=== PATIENT | female | born 1950 | race American Indian/Alaskan Native ===

== ENCOUNTER 2018-07-27 13:23 | Inpatient (IN) | payer MEDICARE, OTHER ==
--- NOTE | 2018-07-27 14:16 | ED PDOC ---
Arrival/HPI - General Chief Complaint: Shortness Of Breath Time Seen by Provider: 07/27/18 13:45 Historian: Patient - History of Present Illness Narrative History of Present Illness (Text): 07/27/18 14:15 67 year old female, with past medical history of hypertension and hypothyroidism, presents to the ED complaining of generalized weakness and chills since past week. Patient reports recent completion of Iron pills prescribed by her PMD secondary to abnormal blood results. Patient reports past history of blood transfusion and states receiving 1 unit of blood recently. Patient denies any other associated somatic complaints. Patient denies any fevers, headache, dizziness, chest pain, shortness of breath, dyspnea on exertion, cough, abdominal pain, nausea, vomiting, diarrhea, back pain, neck pain, or any other complaints. PMD: Dr. Justin Time/Duration: 1 week Symptom Onset: Gradual Symptom Course: Unchanged Activities at Onset: Light Context: Home Past Medical History - Provider Review Nursing Documentation Reviewed: Yes - Cardiac Hx Hypertension: Yes - Endocrine/Metabolic Hx Hypothyroidism: Yes - Psychiatric Hx Substance Use: No - Surgical History Other/Comment: hernia repair - Anesthesia Hx Anesthesia: Yes Hx Anesthesia Reactions: No Hx Malignant Hyperthermia: No Family/Social History - Physician Review Nursing Documentation Reviewed: Yes Family/Social History: Unknown Family HX Smoking Status: Never Smoked Hx Alcohol Use: No Hx Substance Use: No Allergies/Home Meds Allergies/Adverse Reactions: Allergies No Known Allergies Allergy (Verified 07/20/18 10:28) Review of Systems - Physician Review All systems were reviewed & negative as marked: Yes - Review of Systems Constitutional: Other (Generalized weakness). absent: Fevers Respiratory: absent: SOB, Cough Cardiovascular: absent: Chest Pain, WEBB Gastrointestinal: absent: Abdominal Pain, Diarrhea, Nausea, Vomiting Genitourinary Female: absent: Dysuria, Urine Output Changes Musculoskeletal: absent: Back Pain, Neck Pain Skin: absent: Rash Neurological: absent: Headache, Dizziness Physical Exam - Physical Exam Narrative Physical Exam (Text): 07/27/18 14:21 Gen: VS reviewed, alert, well developed, well nourished, nontoxic, mild distress, pale appearing. ENT: normal pharynx. Eye: EOMI, PERRL. Neck: no JVD, supple, no adenopathy. CV: regular rate, regular rhythm, no rubs, no murmur, no gallops, S1, S2, pulses equal and strong. Pulm: no distress, clear to auscultation, no wheeze, no rhonchi, breath sounds equal, no rales. Abd: soft, nontender, no guarding, no rebound, no rigidity, normal bowel sounds. Ext: no edema. Skin: Pale appearing, no rash, no cyanosis. Psych: responds appropriately to questions, normal affect. Neuro: oriented x 3, CN2-12 intact grossly, motor intact, sensation intact. Appearance: Positive for: Well-Appearing, Non-Toxic, Comfortable, Other (Pale appearing) Pain Distress: Mild Mental Status: Positive for: Alert and Oriented X 3 Medical Decision Making ED Course and Treatment: 07/27/18 14:22 Impression: 67 year old female presents to the Emergency department complaining of generalized weakness and chills. Plan: -- Labs -- EKG -- Urinalysis -- Reassess and disposition Prior Visits: Notes and results from previous visits were reviewed. Progress Notes: 07/27/18 16:[address] junior, patient to be admitted for symptomatic anemia. in light of the patient's borderline Hb, patient feels very run down and lethargic. Patient does not exhibit overt active blood loss. Patient will require at least one unit prbc. - EKG Interpretation EKG Interpretation (Text): 07/27/18 15:10 1334: nsr at 100 bpm, nml qrs, nml axis, nonspecific t wave abn, artifact Interpreted by ED Physician: Yes - Scribe Statement The provider has reviewed the documentation as recorded by the Daleibngoc Urrutia. All medical record entries made by the Scribe were at my direction and personally dictated by me. I have reviewed the chart and agree that the record accurately reflects my personal performance of the history, physical exam, medical decision making, and the department course for this patient. I have also personally directed, reviewed, and agree with the discharge instructions and disposition. Disposition/Present on Arrival - Present on Arrival Any Indicators Present on Arrival: No History of DVT/PE: No History of Uncontrolled Diabetes: No Urinary Catheter: No History of Decub. Ulcer: No History Surgical Site Infection Following: None - Disposition Have Diagnosis and Disposition been Completed?: Yes Diagnosis: Symptomatic anemia Disposition: HOSPITALIZED Disposition Time: 16:42 Condition: STABLE Forms: [facility] (Greek)
[2018-07-27 15:54] LABS: BASO # 0.02 K/mm3 (0.0-2.0); BASO % 0.4 % (0.0-3.0); EOS % 0.2 % (1.5-5.0); GRAN # 2.96 (1.4-6.5); GRAN % 66.4 % (50.0-68.0); HEMOGLOBIN 8.4 g/dL (12.0-16.0); LYMPH # 1.1 (1.2-3.4); LYMPH % 24.7 % (22.0-35.0); MEAN CELL VOLUME 79.7 fl (80.0-105.0); MEAN CORPUSCULAR HEMOGLOBIN 24.1 pg (25.0-35.0); MEAN CORPUSCULAR HGB CONC 30.2 g/dl (31.0-37.0); MEAN PLATELET VOLUME 10.2 fl (7.0-11.0); MONO # 0.4 (0.1-0.6); MONO % 8.3 % (1.0-6.0); RBC 3.49 10^6/uL (3.5-6.1); RED CELL DISTRIBUTION WIDTH 17.2 % (11.5-14.5); WHITE BLOOD COUNT 4.5 10^3/uL (4.5-11.0)
[2018-07-27 16:00] LABS: ALB/GLOB RATIO 0.8 (1.1-1.8); ALBUMIN 3.9 g/dL (3.0-4.8); ALT/SGPT 20 U/L (7-56); AST/SGOT 29 U/L (14-36); BLOOD UREA NITROGEN 10 mg/dL (7-21); CALCIUM 7.6 mg/dL (8.4-10.5); GFR NON-AFRICAN AMERICAN > 60
[2018-07-27] MEDS ORDERED: Lactated Ringer's 1,000 ML IV SCH (17:45)
[2018-07-27 18:32] LABS: TOTAL IRON BINDING CAPACITY 290 ug/dL (265-497)
[2018-07-27 18:42] LABS: FREE T4 1.66 ng/dL (0.78-2.19); T4 10.8 ug/dL (5.5-11.0)
[2018-07-27 18:49] LABS: % IRON SATURATION 11 % (20-55); IRON 32 ug/dL (45-180)
--- NOTE | 2018-07-27 18:52 | CARD ---
APPROVED REPORT Date of service: 07/27/2018 EKG Measurement Heart [id number] <Conclusion> Normal sinus rhythm Nonspecific T wave abnormality Abnormal ECG
[2018-07-27] MEDS: Lactated Ringer's 1,000 ML IV SCH (20:13)
--- NOTE | 2018-07-27 20:14 | CP.PCM.CON ---
History of Present Illness - History of Present Illness History of Present Illness: 67 year old female with a history of HTN and iron deficiency anemia, admitted with fatigue and weakness, with anemia. The patient was seen by me 2 weeks ago for anemia evaluation. Her work up was consistent with iron deficiency anemia with a hgb of 6.5. She was sent to the outpatient infusion area at [place] for 2U PRBC transfusion. She received 1 unit and on the 2nd day, prior to transfusion, was noted to have a fever of 102F. She was referred back to her PMD to be evaluated for fever. She notes to being prescribed antibiotics and flu medication but continued to feel weak and came to the ER. In the ER she was found to have a hgb 8.3. She notes to continued fatigue and weakness. She denies abnormal bleeding and bruising. Of note, she did have a colonoscopy about 2-3 years ago which she reports only showed polyps. Past medical history: HTN, iron deficiency anemia Past surgical history: Hernia repair, thyroid surgery ?goiter Family history: Denies hematologic and oncologic problems Social history: Denies tobacco, alcohol, and illicit drug use Allergies: NKA Review of systems: All remaining review of systems including HEENT, cardiovascular, respiratory, gastrointestinal, genitourinary, musculoskeletal, dermatologic, neurologic, and psychiatric are negative unless mentioned in the HPI. Past Patient History - Past Social History Smoking Status: Never Smoked - CARDIAC Hx Hypertension: Yes - ENDOCRINE/METABOLIC Hx Hypothyroidism: Yes - PSYCHIATRIC Hx Substance Use: No - SURGICAL HISTORY Other/Comment: hernia repair - ANESTHESIA Hx Anesthesia: Yes Hx Anesthesia Reactions: No Hx Malignant Hyperthermia: No Meds Allergies/Adverse Reactions: Allergies Allergy/AdvReac Type Severity Reaction Status Date / Time No Known Allergies Allergy Verified 07/27/18 18:59 - Medications Medications: Current Medications Acetaminophen (Tylenol 325mg Tab) 650 mg PO Q6 PRN PRN Reason: TEMP>=99.5F Acetaminophen (Tylenol 650 Mg Supp) 650 mg RC Q6H PRN PRN Reason: TEMP>=99.5F Docusate Sodium (Colace) 100 mg PO TID WANDER Iron Sucrose 200 mg/ Sodium (Chloride) 110 mls @ 110 mls/hr IVPB DAILY WANDER Stop: 07/31/18 10:59 Lactated Ringer's (Lactated Ringer's) 1,000 mls @ 60 mls/hr IV .[id number] [facility] Last Admin: 07/27/18 20:13 Dose: 60 mls/hr Metoprolol Tartrate (Lopressor) 25 mg PO Q12H [facility] Last Admin: 07/27/18 20:13 Dose: 25 mg Ondansetron HCl (Zofran Inj) 4 mg IVP Q4H PRN PRN Reason: Nausea/Vomiting Pantoprazole Sodium (Protonix Ec Tab) 40 mg PO 0600 [facility] Polyethylene Glycol (Miralax) 17 gm PO BID [facility] Physical Exam - Head Exam Head Exam: ATRAUMATIC - Eye Exam Eye Exam: Normal appearance - ENT Exam ENT Exam: Mucous Membranes Dry - Respiratory Exam Respiratory Exam: NORMAL BREATHING PATTERN - Cardiovascular Exam Cardiovascular Exam: +S1, +S2 - GI/Abdominal Exam GI & Abdominal Exam: Normal Bowel Sounds - Neurological Exam Neurological exam: Oriented x3 - Psychiatric Exam Psychiatric exam: Normal Affect, Normal Mood - Skin Skin Exam: Warm Results - Vital Signs Recent Vital Signs: Last Vital Signs Temp 98.5 F 07/27/18 16:58 Pulse 103 H 07/27/18 20:13 Resp 19 07/27/18 16:58 BP 161/72 H 07/27/18 20:13 Pulse Ox 95 07/27/18 16:58 - Labs Result Diagrams: 07/28/18 07:40 07/28/18 07:40 Labs: Laboratory Results - last 24 hr 07/27/18 07/27/18 07/27/18 15:00 15:00 15:00 WBC RBC Hgb Hct MCV MCH MCHC RDW Plt Count MPV Gran % Lymph % (Auto) Stearns % (Auto) Eos % (Auto) Baso % (Auto) Gran # Lymph # (Auto) Stearns # (Auto) Eos # (Auto) Baso # (Auto) Retic Count 1.09 Sodium Potassium Chloride Carbon Dioxide Anion Gap BUN Creatinine Est GFR ( Amer) Est GFR (Non-Af Amer) Random Glucose Calcium Magnesium Iron 32 L TIBC 290 % Saturation 11 L Total Bilirubin AST ALT Alkaline Phosphatase Troponin I Total Protein Albumin Globulin Albumin/Globulin Ratio Free T4 1.66 Thyroxine (T4) 10.8 TSH 3rd Generation Blood Type Antibody Screen Crossmatch BBK History Checked 07/27/18 07/27/18 07/27/18 15:37 15:37 15:37 WBC 4.5 RBC 3.49 L Hgb 8.4 L Hct 27.8 L MCV 79.7 L MCH 24.1 L MCHC 30.2 L RDW 17.2 H Plt Count 381 MPV 10.2 Gran % 66.4 Lymph % (Auto) 24.7 Stearns % (Auto) 8.3 H Eos % (Auto) 0.2 L Baso % (Auto) 0.4 Gran # 2.96 Lymph # (Auto) 1.1 L Stearns # (Auto) 0.4 Eos # (Auto) 0.0 Baso # (Auto) 0.02 Retic Count Sodium 138 Potassium 4.3 Chloride 100 Carbon Dioxide 28 Anion Gap 15 BUN 10 Creatinine 0.8 Est GFR ( Amer) > 60 Est GFR (Non-Af Amer) > 60 Random Glucose 110 Calcium 7.6 L Magnesium 2.2 Iron TIBC % Saturation Total Bilirubin 0.5 AST 29 ALT 20 Alkaline Phosphatase 77 Troponin I Total Protein 8.5 H Albumin 3.9 Globulin 4.6 Albumin/Globulin Ratio 0.8 L Free T4 Thyroxine (T4) TSH 3rd Generation 1.75 Blood Type Antibody Screen Crossmatch BBK History Checked 07/27/18 07/27/18 16:26 16:36 WBC RBC Hgb Hct MCV MCH MCHC RDW Plt Count MPV Gran % Lymph % (Auto) Stearns % (Auto) Eos % (Auto) Baso % (Auto) Gran # Lymph # (Auto) Stearns # (Auto) Eos # (Auto) Baso # (Auto) Retic Count Sodium Potassium Chloride Carbon Dioxide Anion Gap BUN Creatinine Est GFR ( Amer) Est GFR (Non-Af Amer) Random Glucose Calcium Magnesium Iron TIBC % Saturation Total Bilirubin AST ALT Alkaline Phosphatase Troponin I < 0.01 Total Protein Albumin Globulin Albumin/Globulin Ratio Free T4 Thyroxine (T4) TSH 3rd Generation Blood Type B POSITIVE Antibody Screen Negative Crossmatch See Detail BBK History Checked Patient has bt Assessment & Plan (1) Anemia Assessment and Plan: hypoproliferative erythroid response from iron deficiency normal ferritin likely due to recent transfusion; was low in the office agree with IV iron GI work up Status: Acute (2) Leukopenia Assessment and Plan: no neutropenia likely benign Thank you for this interesting consult. Status: Acute
[2018-07-27 21:43] LABS: INR 1.27; PARTIAL THROMBOPLASTIN TIME 27.7 Seconds (25.1-36.5); PROTHROMBIN TIME 14.6 SECONDS (9.4-12.5)
--- NOTE | 2018-07-27 21:59 | HP ---
DATE OF EXAM: 07/27/2018 HISTORY OF PRESENT ILLNESS: The patient is a 67-year-old female presented with complaints to the [facility] Emergency Room as a walk-in complaining of shortness of breath, fatigue, weakness since last week or so. The patient received transfusion in the [place] emergency room on 07/21/2018 was supposed to get a second unit of PRBC, but was unable to get it for high fever and the patient was treated with antibiotic as per the patient by the PMD. The patient came back today with increasing fatigue, weakness, tiredness and shortness of breath and dyspnea on exertion. CODE STATUS: Full code. LIVING WILL/ADVANCE DIRECTIVE: None. ALLERGIES: NONE. Height is 5 feet 6 inches. BMI is 37. MEDICATIONS: Home medications are not listed in the computer, but according to the patient, the patient is taking nifedipine 90 mg and Lasix 20 mg. The patient is also taking Equetro 300 mg daily. The patient was taking nifedipine 90 mg daily, Lasix 20 mg daily, pantoprazole 40 mg daily. PAST MEDICAL AND SURGICAL HISTORY: The patient's past medical history is significant for hypertension, history of questionable hyperlipidemia, history of hypothyroidism, history of thyroidectomy, history of ventral hernia surgery, history of anemia, history of transfusion requiring anemia, history of endoscopy, colonoscopy 2 years ago at [facility] reported negative by the patient. 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 The patient's past medical history is also significant for hypertension, hypothyroidism, history of ventral herniorrhaphy, history of thyroidectomy, history of transfusion requiring anemia. FAMILY HISTORY: Not available. OCCUPATIONAL HISTORY: Not employed, not working. SOCIAL HISTORY: The patient denies alcohol. Denies drugs. Denies substance abuse. Denies smoking. Denies communicable transmissible disease. MENSTRUAL HISTORY: Postmenopausal. The patient denies any bleeding history. REVIEW OF SYSTEMS: A 14-system review was done, pertinent positive is positive for generalized weakness, fatigue, tiredness and dyspnea on exertion. PHYSICAL EXAMINATION: GENERAL: The patient was seen and examined in room #13. The patient is seen lying in the stretcher in stretcher #13. The patient is comfortable. VITAL SIGNS: T-max 98.6 to 98.5, heart rate 90, 98, 103, blood pressure is 144/83, 154/79, respiration 18, O2 sat 95% to 100%. HEENT: Head examination is normocephalic, atraumatic. HEENT examination shows pale conjunctivae. Anicteric sclerae. No oropharyngeal lesion. NECK: No neck rigidity. Positive surgical scar noted of the neck. CHEST: Kyphosis. CARDIOVASCULAR: S1, S2, regular rhythm. Questionable soft systolic murmur in the left sternal border, right second intercostal space, left second intercostal space. LUNGS: Shows no audible crackles, rales or wheezing. ABDOMEN: Soft. Positive bowel sound . GENITALIA: Female. RECTAL EXAMINATION: Deferred. EXTREMITIES: Shows no pitting edema. No calf tenderness. No Homans' sign. NEUROLOGIC: The patient is alert, awake, oriented x3. He is able to move upper and lower extremity without assistance. Gait examination is not tested. VASCULAR: Palpable pulses. Plantars are downward. DTRs at 2+. No neuro deficit noted. MUSCULOSKELETAL: Examination shows a body mass index of 36. DIAGNOSTICS: WBC 4.5, hemoglobin and hematocrit 8.4 and 27.8, platelets 381. Retic count 1.09. Sodium 138, potassium 4.3, chloride 100, CO2 of 28, anion gap 15, BUN 10, creatinine 0.8. GFR is greater than 60. Glucose 110, calcium 7.6, magnesium 2.2, iron 32, iron saturation 11. LFTs are normal. Troponin is negative. TSH 1.75, T4 10.8. Blood type B positive. EKG done in the emergency room shows sinus rhythm, baseline artifact.. The patient's CT of the chest, abdomen, and pelvis are pending. The patient was seen in the emergency room by the ER physician. The patient was ordered transfusion of 1 unit of PRBC and the patient was advised to be admitted. IMPRESSION: 1. Severe symptomatic anemia with symptoms of dyspnea on exertion, weakness and fatigue with decreasing hemoglobin and hematocrit. 2. Possible refractory anemia. 3. Tachycardia. 4. History of hypertension. 5. Normocytic anemia. 6. Possible iron-deficiency anemia. 7. History of thyroidectomy. 8. History of right parotid, possibly pleomorphic adenoma and right parotid mass. 9. History of thyroid goiter, status post thyroidectomy. 10. History of small vessel ischemic disease of the brain. 11. Right carotid gland cystic mass. 12. Obesity with elevated body mass index of 37. 13. History of hypertension. 14. History of questionable trigeminal neuralgia. PLAN: At this time, the patient has been evaluated in the emergency room and has been advised to be admitted. The patient has been ordered iron studies. Repeat CMP, LFT, magnesium, phosphorus, erythropoietin, hemoglobin electrophoresis, sickle cell, soluble transferrin receptor antibody, PT/PTT, repeat CBC , GI, Hematology/Oncology consultation ordered. The patient has been typed and crossmatch. The patient is started on Colace 100 mg three times a day, Venofer 200 mg IV daily, Ringer's lactate at 60 mL an hour, Lopressor 25 mg every 12, MiraLax 17 g twice a day, Protonix 40 mg daily, Tylenol p.r.n., Zofran 4 IV every [address] of the chest, abdomen, and pelvis has been ordered for evaluation of symptomatic anemia and sent for spirometry, oxygen 2 liters continuous. FELIX stockings for DVT prophylaxis. Head of the bed at 30 degrees, consistent carbohydrate diet ordered. Blood transfusion has been ordered 2 units , stool occult blood ordered. According to the patient, the patient had an endoscopy and colonoscopy done 2 years ago at [facility], which she reports that being negative. Results are unavailable. At present, the patient is awaiting for a bed in the emergency room. The patient's further management will be dependent upon the patient's clinical condition, hemodynamic status and as per the patient response to therapeutic intervention, as per the patient's diagnostic test results and as per recommendation by all the physician involved in the care of the patient. The patient has been explained about all the details and all the diagnostic details and need for hospitalization, need for further diagnostic therapeutic intervention, need for evaluation by other acquisition consultant was explained to the patient at length and all questions concerned answered. Dictated and electronically signed, not read. Alexander Moreland MD
[2018-07-27 22:36] LABS: FOLATE > 20.0 ng/mL
[2018-07-28] MEDS: Pantoprazole 40 mg EC Tab PO SCH (05:25)
[2018-07-28 08:02] LABS: BASO # 0.01 K/mm3 (0.0-2.0); BASO % 0.3 % (0.0-3.0); EOS % 0.6 % (1.5-5.0); GRAN # 2.23 (1.4-6.5); GRAN % 63.7 % (50.0-68.0); HEMOGLOBIN 8.3 g/dL (12.0-16.0); LYMPH # 0.9 (1.2-3.4); LYMPH % 25.4 % (22.0-35.0); MEAN CELL VOLUME 79.6 fl (80.0-105.0); MEAN CORPUSCULAR HEMOGLOBIN 24.2 pg (25.0-35.0); MEAN CORPUSCULAR HGB CONC 30.4 g/dl (31.0-37.0); MEAN PLATELET VOLUME 10.3 fl (7.0-11.0); MONO # 0.4 (0.1-0.6); RBC 3.43 10^6/uL (3.5-6.1); RED CELL DISTRIBUTION WIDTH 16.7 % (11.5-14.5); WHITE BLOOD COUNT 3.5 10^3/uL (4.5-11.0)
[2018-07-28 08:30] LABS: ALB/GLOB RATIO 0.8 (1.1-1.8); ALBUMIN 3.4 g/dL (3.0-4.8); ALT/SGPT 25 U/L (7-56); AST/SGOT 33 U/L (14-36); BILIRUBIN,DIRECT 0.3 mg/dL (0.0-0.4); BLOOD UREA NITROGEN 9 mg/dL (7-21); GFR NON-AFRICAN AMERICAN > 60
--- NOTE | 2018-07-28 09:11 | CT ---
Date of service: 07/27/2018 PROCEDURE: CT Chest, Abdomen and Pelvis without intravenous contrast HISTORY: SYMPTOMATIC ANEMIA COMPARISON: None available. TECHNIQUE: Radiation dose: Total exam DLP = 1510.15 mGy-cm. This CT exam was performed using one or more of the following dose reduction techniques: Automated exposure control, adjustment of the mA and/or kV according to patient size, and/or use of iterative reconstruction technique. FINDINGS: CT CHEST WITHOUT CONTRAST: LUNGS: Clear. No nodule, mass or consolidation. MEDIASTINUM: Cardiomegaly with large pericardial effusion. Large hiatal hernia. LYMPH NODES: Unremarkable. PLEURA: Unremarkable. No pneumothorax. No pleural fluid. BONES: Unremarkable. OTHER FINDINGS: None. CT ABDOMEN AND PELVIS: LIVER: Unremarkable. No gross lesion or ductal dilatation. GALLBLADDER AND BILE DUCTS: Unremarkable. PANCREAS: Unremarkable. No gross lesion or ductal dilatation. SPLEEN: Unremarkable. ADRENALS: Unremarkable. No mass. KIDNEYS AND URETERS: Unremarkable. No hydronephrosis. No solid mass. VASCULATURE: No aortic atherosclerotic calcification or mural plaque present. Unremarkable. No aortic aneurysm. BOWEL: Unremarkable. No obstruction. No gross mural thickening. APPENDIX: Normal appendix. PERITONEUM: Unremarkable. No free fluid. No free air. LYMPH NODES: Unremarkable. No enlarged lymph nodes. BLADDER: Unremarkable. REPRODUCTIVE: Unremarkable. BONES: No acute fracture. OTHER FINDINGS: None. IMPRESSION: Cardiomegaly with large pericardial effusion. Large hiatal hernia.
[2018-07-28] MEDS: POLYETHYLENE GLYCOL 3350 17 GM/Dose PACKET PO SCH ×3 (10:15→17:16)
[2018-07-28 10:53] LABS: URINE APPEARANCE CLEAR (CLEAR); URINE BILIRUBIN NEGATIVE (NEGATIVE); URINE BLOOD NEGATIVE (NEGATIVE); URINE COLOR YELLOW (YELLOW); URINE GLUCOSE (UA) NEGATIVE (NEGATIVE); URINE LEUKOCYTE ESTERASE NEGATIVE Leu/uL (NEGATIVE); URINE PROTEIN TRACE mg/dL (<30 mg/dL); URINE UROBILINOGEN 0.2 E.U./dL (<1 E.U./dL)
[2018-07-28 10:58] LABS: URINE BACTERIA SMALL (NEG); URINE RBC NEGATIVE /hpf (0-2)
--- NOTE | 2018-07-28 13:14 | CARD ---
APPROVED REPORT Date of service: 07/28/2018 EXAM: Two-dimensional and M-mode echocardiogram with Doppler and color Doppler. INDICATION Pericardial Effusion 2D DIMENSIONS Left Atrium (2D)5.2 (1.6-4.0cm)IVSd1.0 (0.7-1.1cm) LVDd4.5 (3.9-5.9cm)PWd1.1 (0.7-1.1cm) LVDs3.0 (2.5-4.0cm)FS (%) 33.9 % LVEF (%)62.9 (>50%) M-Mode DIMENSIONS Aortic Root3.00 (2.2-3.7cm)Aortic Cusp Exc.1.90 (1.5-2.0cm) Aortic Valve AoV Peak Yjxtpnsw420.0cm/Eda Peak GR.9mmHg Mitral Valve MV E Moltordv97.5cm/sMV A Cqaauxst48.5cm/sE/A ratio0.7 TDI Lateral E' Peak V8.09cm/sMedial E' Peak V7.51cm/sE/Lateral E'6.9 E/Medial E'7.4 Pulmonary Valve PV Peak Nrnfzdqs36.7cm/sPV Peak Grad.4mmHg Tricuspid Valve TR Peak Nzodskoe410it/sRAP [id number] Peak Gr.36mmHg [id number] LEFT VENTRICLE The left ventricle is normal size. There is borderline to mild concentric left ventricular hypertrophy. The left ventricular function is normal. The left ventricular ejection fraction is within the normal range. There is normal LV segmental wall motion. Transmitral Doppler flow pattern is Grade I-abnormal relaxation pattern. No left ventricle thrombus noted on this study. RIGHT VENTRICLE The right ventricle is normal size. There is normal right ventricular wall thickness. The right ventricular systolic function is normal. ATRIA The left atrium is moderately dilated. The right atrium is mildly dilated. AORTIC VALVE The aortic valve is normal in structure. No aortic regurgitation is present. There is no aortic valvular stenosis. MITRAL VALVE The mitral valve is normal in structure. Mitral regurgitation is mild. There is no mitral valve stenosis. TRICUSPID VALVE There is mild tricuspid regurgitation. There is mild to moderate pulmonary hypertension. PULMONIC VALVE There is trace pulmonic valvular regurgitation. GREAT VESSELS The aortic root is normal in size. PERICARDIAL EFFUSION There is a small-moderate circumferential pericardial effusion. There is an evidence of diastolic compression of the right atrium pericardial effusion. <Conclusion> There is borderline to mild concentric left ventricular hypertrophy. The left ventricular function is normal. The left ventricular ejection fraction is within the normal range. There is normal LV segmental wall motion. Transmitral Doppler flow pattern is Grade I-abnormal relaxation pattern. Mitral regurgitation is mild. There is mild tricuspid regurgitation. There is mild to moderate pulmonary hypertension. There is a small-moderate circumferential pericardial effusion. There is an evidence of diastolic compression of the right atrium pericardial effusion.
--- NOTE | 2018-07-28 16:04 | PN ---
DATE: 07/28/2018 SUBJECTIVE: The patient is seen in room 574, bed 2. The patient is sitting up in the bed, alert, awake, responsive in the process of beginning to eat her breakfast.. The patient is comfortable. Sitting up in the bed. The patient's shortness of breath has decreased. The patient states that her shortness of breath is less than the last few days. The patient received 1 unit of packed red blood cells. PHYSICAL EXAMINATION: VITAL SIGNS: T-max is 100.2, 102.1 down to 100 degrees. Heart rate 85-87, blood pressure is 159/89, 160/90, 144/77, respiration 18-20, O2 sat 100%. Head: Examination normocephalic, atraumatic. HEENT: Shows pale conjunctivae. Anicteric sclerae. No oropharyngeal lesion. Dry oral mucosa. No neck rigidity. CHEST: Examination kyphosis. LUNGS: Examination shows no audible crackle, rales or wheezing. CARDIOVASCULAR: Shows S1, S2, regular rhythm. ABDOMEN: Soft. Positive bowel sounds. Protuberant, obese abdomen. GENITALIA: Female. RECTAL: Examination is deferred. EXTREMITIES: Shows no pitting edema, no calf tenderness, no Dai's signs. NEUROLOGIC: The patient is alert, awake, oriented x3. Cranial nerves II-XII intact. Gait examination is not tested. MUSCULOSKELETAL: Examination shows a body mass index of 36.5. PSYCHIATRIC: Examination is negative. VASCULAR: Palpable pulses. DIAGNOSTICS: 07/28/2018, WBC 3.5, hemoglobin/hematocrit 8.3/27.3, platelet 329. PT/PTT 14.6/27.7. Sodium 134, potassium 3.8, chloride 101, CO2 26, anion gap 10, BUN 9, creatinine 0.7, GFR greater than 60, glucose 110, calcium 7, phosphorus 4.9, magnesium 2. Troponin is negative. LFTs are normal. Vitamin B12 479, folate greater than 20. TSH is 1.75. T4 is 10.8. The patient received 1 unit of PRBC. Blood type B positive. is now available, which shows cardiomegaly with large pericardial effusion, large hiatal hernia. IMPRESSION: 1. Severe symptomatic anemia with symptoms of shortness of breath, weakness and fatigue. 2. High-grade fever of 102.1. 3. Tachycardia. 4. Hypertension. 5. Severe symptomatic anemia. 6. Leukopenia, anemia. 7. Mild hypocalcemia. 8. Iron deficiency. 9. Possible iron-deficiency anemia with decreased iron, decreased saturation. 10. Hyperphosphatemia. 11. Status post 1 unit of PRBC transfusion. 12. Cardiomegaly with large pericardial effusion. 13. Large hiatal hernia. 14. Nonspecific ST changes on the EKG. 15. History of hypertension. 16. History of right parotid tumor, history of thyroidectomy, history of ventral hernia surgery. PLAN: Plan at this time, the patient has been ordered repeat serial labs. The patient has been ordered repeat CBC. The patient has been ordered blood cultures, urine cultures STAT. The patient has been ordered Cardiology consultation, GI consultation, Infectious Disease consultation Rapid flu, rapid strep has been ordered. Current medications, Colace 100 mg three times a day, Venofer 200 mg IV daily, Ringer's lactate 60 mL an hour, Lopressor 25 mg every 12 hours, MiraLax 17 g twice a day, Protonix 40 mg daily. The patient is empirically started on Tamiflu 75 mg twice a day. The patient stated that the patient was taking this last week. Was given to the patient by the patient's PMD, Tylenol p.r.n. for fever, Zofran 4 IV every four hours, incentive spirometry oxygen 2 liters, echo with Doppler has been ordered for evaluation of pericardial effusion. SCDs, FELIX stockings, head of the bed at 30 degrees. Has been ordered blood transfusion for the second unit has been ordered, stool occult blood pending. We are still awaiting Gastroenterology, Hematology and Cardiology evaluation and recommendation.. The patient has been updated about her condition, diagnosis, treatment plan, management plan at length and all questions concerned answered to her satisfaction. Dictated and electronically signed, not read. Alexander Moreland MD
--- NOTE | 2018-07-28 16:21 | CP.PCM.CON ---
History of Present Illness - History of Present Illness History of Present Illness: MICU CONSULT NOTE HPI Patient is 67yo female with PMhx HTN and iron defeciency anemia, admitted to floor with fatigue and weakness, s/p receiving prBC transfusion. Patient had ECHO done which showed moderate pericardial effusion, with possible early tamponade physiology. Pt is afebrile, BP stable, comfortable in NAD on room air, doing well, no major complaints. No other constitutional symptoms. Past medical history: HTN, iron deficiency anemia Past surgical history: Hernia repair, thyroid surgery ?goiter Family history: Denies hematologic and oncologic problems Social history: Denies tobacco, alcohol, and illicit drug use Allergies: NKA Review of Systems - Review of Systems Review of Systems: as per HPI Past Patient History - Past Social History Smoking Status: Never Smoked - CARDIAC Hx Cardiac Disorders: Yes Hx Hypertension: Yes - PULMONARY Hx Respiratory Disorders: No Hx Asthma: No Hx Bronchitis: No Hx Chronic Obstructive Pulmonary Disease (COPD): No Hx Emphysema: No Hx Pneumonia: No Hx Respiratory Aspiration: No Hx Respiratory Tract Infection: No Hx Sleep Apnea: No Hx Tuberculosis: No - NEUROLOGICAL Hx Neurological Disorder: No Hx Alzheimer's Disease: No HX Cerebrovascular Accident: No Hx Dementia: No Hx Dizziness: No Hx Meningitis: No Hx Migraine: No Hx Parkinson's Disease: No Hx Seizures: No Hx Transient Ischemic Attacks (TIA): No - HEENT Hx HEENT Problems: No Hx Blind: No Hx Cataracts: No Hx Deafness: No Hx Difficulty Chewing: No Hx Epistaxis: No Hx Glaucoma: No Hx Macular Degeneration: No - RENAL Hx Chronic Kidney Disease: No Hx Dialysis: No Hx Kidney Stones: No Hx Neurogenic Bladder: No Hx Pyelonephritis: No Hx Renal (Kidney) Cancer: No Hx Renal Failure: No - ENDOCRINE/METABOLIC Hx Hypothyroidism: Yes - HEMATOLOGICAL/ONCOLOGICAL Hx Blood Disorders: No Hx AIDS: No Hx Anemia: Yes Hx Cancer: No Hx Chemotherapy: No Hx Cirrhosis: No Hx Hemophilia: No Hx Hepatitis A: No Hx Hepatitis B: No Hx Hepatitis C: No Hx Human Immunodeficiency Virus (HIV): No Hx Metastesis: No Hx Shingles: No Hx Sickle Cell Disease: No Hx Unexplained Bleeding: No - INTEGUMENTARY Hx Dermatological Problems: No Hx Basil Cell: No Hx Eczema: No Hx Melanoma: No Hx Psoriasis: No Hx Squamous Cell: No - MUSCULOSKELETAL/RHEUMATOLOGICAL Hx Musculoskeletal Disorders: No Hx Arthritis: No Hx Back Pain: No Hx Degenerative Joint Disease: No Hx Falls: No Hx Fractures: No Hx Gout: No Hx Herniated Disk: No Hx Myasthenia Gravis: No Hx Osteoarthritis: No Hx Osteomyelitis: No Hx Osteoporosis: No Hx Rhabdomyolysis: No Hx Spinal Stenosis: No Hx Unsteady Gait: No - GASTROINTESTINAL Hx Crohn's Disease: No Hx Diverticulitis: No Hx Gall Bladder Disease: No Hx Gastroesophageal Reflux: No Hx Ileostomy: No Hx Liver Failure: No Hx Pancreatitis: No HX Swallowing Problems: No Hx Ulcer: No - GENITOURINARY/GYNECOLOGICAL Hx Genitourinary Disorders: No Hx Hematuria: No Hx Incontinence: No Hx Sexually Transmitted Disorders: No Hx Urinary Tract Infection: No - PSYCHIATRIC Hx Substance Use: No - SURGICAL HISTORY Other/Comment: hernia repair - ANESTHESIA Hx Anesthesia: Yes Hx Anesthesia Reactions: No Hx Malignant Hyperthermia: No Meds Allergies/Adverse Reactions: Allergies Allergy/AdvReac Type Severity Reaction Status Date / Time No Known Allergies Allergy Verified 07/27/18 18:59 - Medications Medications: Current Medications Acetaminophen (Tylenol 325mg Tab) 650 mg PO Q6 PRN PRN Reason: TEMP>=99.5F Last Admin: 07/28/18 06:08 Dose: 650 mg Acetaminophen (Tylenol 650 Mg Supp) 650 mg RC Q6H PRN PRN Reason: TEMP>=99.5F Docusate Sodium (Colace) 100 mg PO TID [facility] Last Admin: 07/28/18 14:08 Dose: Not Given Iron Sucrose 200 mg/ Sodium (Chloride) 110 mls @ 110 mls/hr IVPB DAILY [facility] Stop: 07/31/18 10:59 Last Admin: 07/28/18 10:16 Dose: 110 mls/hr Lactated Ringer's (Lactated Ringer's) 1,000 mls @ 60 mls/hr IV .[id number] [facility] Last Admin: 07/27/18 20:13 Dose: 60 mls/hr Metoprolol Tartrate (Lopressor) 25 mg PO Q12H [facility] Last Admin: 07/28/18 10:15 Dose: 25 mg Ondansetron HCl (Zofran Inj) 4 mg IVP Q4H PRN PRN Reason: Nausea/Vomiting Oseltamivir Phosphate (Tamiflu Cap) 75 mg PO BID [facility]; Protocol Stop: 08/02/18 09:52 Last Admin: 07/28/18 10:15 Dose: 75 mg Pantoprazole Sodium (Protonix Ec Tab) 40 mg PO 0600 [facility] Last Admin: 07/28/18 05:25 Dose: 40 mg Polyethylene Glycol (Miralax) 17 gm PO BID [facility] Last Admin: 07/28/18 10:32 Dose: Not Given Physical Exam - Constitutional Appears: Non-toxic, No Acute Distress - Head Exam Head Exam: NORMAL INSPECTION - Eye Exam Eye Exam: Normal appearance - ENT Exam ENT Exam: Mucous Membranes Moist - Neck Exam Neck exam: Positive for: Full Rom - Respiratory Exam Respiratory Exam: Clear to Auscultation Bilateral, NORMAL BREATHING PATTERN - Cardiovascular Exam Cardiovascular Exam: REGULAR RHYTHM, +S1, +S2 - GI/Abdominal Exam GI & Abdominal Exam: Normal Bowel Sounds, Soft - Extremities Exam Extremities exam: Positive for: normal inspection - Back Exam Back exam: NORMAL INSPECTION Results - Vital Signs Recent Vital Signs: Last Vital Signs Temp 100.3 F H 07/28/18 15:17 Pulse 65 07/28/18 15:17 Resp 18 07/28/18 15:17 BP 150/73 07/28/18 15:17 Pulse Ox 94 L 07/28/18 14:00 - Labs Result Diagrams: 07/28/18 07:40 07/28/18 07:40 Labs: Laboratory Results - last 24 hr 07/27/18 07/27/18 07/27/18 15:00 15:00 15:00 WBC RBC Hgb Hct MCV MCH MCHC RDW Plt Count MPV Gran % Lymph % (Auto) [place] % (Auto) Eos % (Auto) Baso % (Auto) Gran # Lymph # (Auto) [place] # (Auto) Eos # (Auto) Baso # (Auto) Retic Count 1.09 PT INR APTT Sodium Potassium Chloride Carbon Dioxide Anion Gap BUN Creatinine Est GFR ( Amer) Est GFR (Non-Af Amer) Random Glucose Calcium Phosphorus Magnesium Iron 32 L TIBC 290 % Saturation 11 L Ferritin 116.0 Total Bilirubin Direct Bilirubin AST ALT Alkaline Phosphatase Troponin I Total Protein Albumin Globulin Albumin/Globulin Ratio Vitamin B12 479 Folate > 20.0 Free T4 Thyroxine (T4) TSH 3rd Generation Urine Color Urine Appearance Urine pH Ur Specific [place] Urine Protein Urine Glucose (UA) Urine Ketones Urine Blood Urine Nitrate Urine Bilirubin Urine Urobilinogen Ur Leukocyte Esterase Urine RBC Urine WBC Ur Epithelial Cells Urine Bacteria Stool Occult Blood Influenza Typ A,B (EIA) Blood Type Antibody Screen Crossmatch BBK History Checked 07/27/18 07/27/18 07/27/18 15:00 15:37 16:26 WBC RBC Hgb Hct MCV MCH MCHC RDW Plt Count MPV Gran % Lymph % (Auto) [place] % (Auto) Eos % (Auto) Baso % (Auto) Gran # Lymph # (Auto) [place] # (Auto) Eos # (Auto) Baso # (Auto) Retic Count PT INR APTT Sodium Potassium Chloride Carbon Dioxide Anion Gap BUN Creatinine Est GFR ( Amer) Est GFR (Non-Af Amer) Random Glucose Calcium Phosphorus Magnesium Iron TIBC % Saturation Ferritin Total Bilirubin Direct Bilirubin AST ALT Alkaline Phosphatase Troponin I Total Protein Albumin Globulin Albumin/Globulin Ratio Vitamin B12 Folate Free T4 1.66 Thyroxine (T4) 10.8 TSH 3rd Generation 1.75 Urine Color Urine Appearance Urine pH Ur Specific [place] Urine Protein Urine Glucose (UA) Urine Ketones Urine Blood Urine Nitrate Urine Bilirubin Urine Urobilinogen Ur Leukocyte Esterase Urine RBC Urine WBC Ur Epithelial Cells Urine Bacteria Stool Occult Blood Influenza Typ A,B (EIA) Blood Type B POSITIVE Antibody Screen Negative Crossmatch See Detail BBK History Checked Patient has bt 07/27/18 07/27/18 07/28/18 16:36 20:53 07:40 WBC 3.5 L D RBC 3.43 L Hgb 8.3 L Hct 27.3 L MCV 79.6 L MCH 24.2 L MCHC 30.4 L RDW 16.7 H Plt Count 329 MPV 10.3 Gran % 63.7 Lymph % (Auto) 25.4 [place] % (Auto) 10.0 H Eos % (Auto) 0.6 L Baso % (Auto) 0.3 Gran # 2.23 Lymph # (Auto) 0.9 L [place] # (Auto) 0.4 Eos # (Auto) 0.0 Baso # (Auto) 0.01 Retic Count PT 14.6 H INR 1.27 APTT 27.7 Sodium Potassium Chloride Carbon Dioxide Anion Gap BUN Creatinine Est GFR ( Amer) Est GFR (Non-Af Amer) Random Glucose Calcium Phosphorus Magnesium Iron TIBC % Saturation Ferritin Total Bilirubin Direct Bilirubin AST ALT Alkaline Phosphatase Troponin I < 0.01 Total Protein Albumin Globulin Albumin/Globulin Ratio Vitamin B12 Folate Free T4 Thyroxine (T4) TSH 3rd Generation Urine Color Urine Appearance Urine pH Ur Specific [place] Urine Protein Urine Glucose (UA) Urine Ketones Urine Blood Urine Nitrate Urine Bilirubin Urine Urobilinogen Ur Leukocyte Esterase Urine RBC Urine WBC Ur Epithelial Cells Urine Bacteria Stool Occult Blood Influenza Typ A,B (EIA) Blood Type Antibody Screen Crossmatch BBK History Checked 07/28/18 07/28/18 07/28/18 07:40 10:30 13:55 WBC RBC Hgb Hct MCV MCH MCHC RDW Plt Count MPV Gran % Lymph % (Auto) [place] % (Auto) Eos % (Auto) Baso % (Auto) Gran # Lymph # (Auto) [place] # (Auto) Eos # (Auto) Baso # (Auto) Retic Count PT INR APTT Sodium 134 Potassium 3.8 Chloride 101 Carbon Dioxide 26 Anion Gap 10 BUN 9 Creatinine 0.7 Est GFR ( Amer) > 60 Est GFR (Non-Af Amer) > 60 Random Glucose 110 Calcium 7.0 L Phosphorus 4.9 H Magnesium 2.0 Iron TIBC % Saturation Ferritin Total Bilirubin 0.6 Direct Bilirubin 0.3 AST 33 ALT 25 Alkaline Phosphatase 68 Troponin I Total Protein 7.4 Albumin 3.4 Globulin 4.1 Albumin/Globulin Ratio 0.8 L Vitamin B12 Folate Free T4 Thyroxine (T4) TSH 3rd Generation Urine Color Yellow Urine Appearance Clear Urine pH 6.0 Ur Specific [place] 1.015 Urine Protein Trace H Urine Glucose (UA) Negative Urine Ketones Negative Urine Blood Negative Urine Nitrate Negative Urine Bilirubin Negative Urine Urobilinogen 0.2 Ur Leukocyte Esterase Negative Urine RBC Negative Urine WBC 1 - 3 Ur Epithelial Cells 1 - 3 Urine Bacteria Small Stool Occult Blood Influenza Typ A,B (EIA) Negative for flu a/b Blood Type Antibody Screen Crossmatch BBK History Checked 07/28/18 14:20 WBC RBC Hgb Hct MCV MCH MCHC RDW Plt Count MPV Gran % Lymph % (Auto) [place] % (Auto) Eos % (Auto) Baso % (Auto) Gran # Lymph # (Auto) [place] # (Auto) Eos # (Auto) Baso # (Auto) Retic Count PT INR APTT Sodium Potassium Chloride Carbon Dioxide Anion Gap BUN Creatinine Est GFR ( Amer) Est GFR (Non-Af Amer) Random Glucose Calcium Phosphorus Magnesium Iron TIBC % Saturation Ferritin Total Bilirubin Direct Bilirubin AST ALT Alkaline Phosphatase Troponin I Total Protein Albumin Globulin Albumin/Globulin Ratio Vitamin B12 Folate Free T4 Thyroxine (T4) TSH 3rd Generation Urine Color Urine Appearance Urine pH Ur Specific [place] Urine Protein Urine Glucose (UA) Urine Ketones Urine Blood Urine Nitrate Urine Bilirubin Urine Urobilinogen Ur Leukocyte Esterase Urine RBC Urine WBC Ur Epithelial Cells Urine Bacteria Stool Occult Blood Negative Influenza Typ A,B (EIA) Blood Type Antibody Screen Crossmatch BBK History Checked Assessment & Plan - Assessment and Plan (Free Text) Assessment: 67yo female with PMhx of HTN, anemia a/w fatigue 2/2 anemia and pericardial effusion - currently afebrile BP stable, comfortable in NAD, doing well Recommend: - supp o2 as needed, duonebs PRN - NO ID issues - follow up CBC post transfusion - BP control - follow up cardiology regarding pericardial effusion, may need intervention - Follow up heme onc - GI ppx - DVT ppx - Monitor in MICU
[2018-07-28 17:40] LABS: HEPATITIS B SURFACE AG Negative (NEGATIVE)
[2018-07-28 17:45] LABS: HEPATITIS A IGM NEGATIVE (NEGATIVE); HEPATITIS B CORE AB NEGATIVE (NEGATIVE)
[2018-07-28 17:57] LABS: HEPATITIS C ANTIBODY NEGATIVE (NEGATIVE)
--- NOTE | 2018-07-28 18:45 | CON ---
DATE: 07/28/2018 CARDIOLOGY CONSULTATION HISTORY: The patient is a 67-year-old woman, who presents with general weakness and chills last week. She also complains of dyspnea. PAST MEDICAL HISTORY: Includes hypertension and hypothyroidism. She was seen by her primary care doctor with abnormal blood tests. She admits history of blood transfusions in the past. She denies chest pain, denies shortness of breath. Denies dizziness. No previous cardiac history. She does suffer from hypertension with no diabetes mellitus. SOCIAL HISTORY: The patient denies smoking. REVIEW OF SYSTEMS: Fourteen-point review of systems is reviewed in detail. No dark stools. No hematochezia. Negative angina. Negative previous myocardial infarction. PHYSICAL EXAMINATION: VITAL SIGNS: Blood pressure is 150/73, the heart rate is in the 60s. Temperature is low-grade temperature, 100.3. NECK: Negative JVD. LUNGS: Without rales. HEART: Heart rate S1, S2. EXTREMITIES: Without edema. EKG shows no acute changes. LABORATORY DATA: Hemoglobin is 8.3. Chemistries, BUN and creatinine, unremarkable. The calcium is 7.0. Troponin is negative x1. Preliminary echocardiogram suggests possible atrial diastolic compression from her pericardial effusion. The pericardial effusion is [id number] and according to the report. IMPRESSION: 1. Pericardial effusion. 2. No evidence for hemodynamic compromise. 3. Anemia. 4. Hypertension. 5. Low-grade fever. PLAN: Given these findings, we will transfer the patient to the ICU for close monitoring. We will repeat an echocardiogram in 24 to 48 hours. Currently, there is no evidence for hemodynamic compromise. Mookie Butler MD
[2018-07-28 19:48] LABS: HEMOGLOBIN 9.4 g/dL (12.0-16.0); MEAN CELL VOLUME 79.7 fl (80.0-105.0); MEAN CORPUSCULAR HEMOGLOBIN 24.8 pg (25.0-35.0); MEAN CORPUSCULAR HGB CONC 31.1 g/dl (31.0-37.0); MEAN PLATELET VOLUME 10.2 fl (7.0-11.0); RBC 3.79 10^6/uL (3.5-6.1); RED CELL DISTRIBUTION WIDTH 16.5 % (11.5-14.5); WHITE BLOOD COUNT 4.3 10^3/uL (4.5-11.0)
--- NOTE | 2018-07-28 20:13 | CON ---
DATE: 07/28/2018 GASTROENTEROLOGY CONSULTATION REQUESTING PHYSICIAN: Dr. Moreland REASON FOR CONSULT: I have been asked to see this 67-year-old female with a history of chronic anemia, who comes to the hospital with increasing shortness of breath and generalized weakness. The patient recently received a unit of packed red blood cells. She apparently was to receive a second unit but this was not done due to fever after the transfusion. She denies any rectal bleeding, melena, nausea, vomiting, abdominal pain or chest pain. Her symptoms of shortness of breath and weakness started 1 week ago. The patient had an endoscopy and colonoscopy [address] Helm at the [facility] No source of blood loss was identified. CT scan of the chest, abdomen and pelvis revealed a large pericardial effusion. No masses were seen in the GI tract. No abnormal fluid collections or abscesses were noted. PAST MEDICAL HISTORY: Positive for hypertension, hypothyroidism, chronic anemia, parotid gland adenoma, atherosclerotic disease of the cerebral vessels. PAST SURGICAL HISTORY: Notable for thyroidectomy, ventral hernia repair. SOCIAL HISTORY: She denies cigarette smoking or alcohol use. FAMILY HISTORY: Noncontributory. REVIEW OF SYSTEMS: Fourteen-point review of systems is notable for dyspnea on exertion and generalized weakness. MEDICATIONS AT HOME: Include nifedipine, Lasix, Protonix, carbamazepine and Synthroid. PHYSICAL EXAMINATION: GENERAL: Obese female sitting up in bed in no acute distress. VITAL SIGNS: Reveal temperature of 99.2, blood pressure 160/90, heart rate of 86. HEENT: Reveal sclerae to be white, conjunctivae pale. NECK: Supple. CHEST: Reveals lungs to be clear. HEART: Exam reveals a regular rate and rhythm. There is no pericardial rub. ABDOMEN: Obese, soft, nontender. EXTREMITIES: Show no edema. LABORATORY DATA: Reveals white blood cell count of 3.5, hemoglobin of 8.3, platelet count 329,000, reticulocyte count is 1.09. Coags reveal PT of 14.6, INR 1.27. Chemistries reveal calcium of 7, phosphorus 4.9. Electrolytes are normal. Ferritin is 116. Iron saturation is 11. IMPRESSION: A 67-year-old female with chronic anemia without any signs of active gastrointestinal bleeding, status post 1 unit of packed red blood cells several days ago. Negative endoscopy and colonoscopy within the last 2 years with an incidental finding of a large pericardial effusion. RECOMMENDATIONS: 1. Transfuse packed red blood cells to a hematocrit of 27%. 2. Cardiology evaluation for pericardial effusion. 3. We will defer endoscopy at this time due to the large pericardial effusion. She can follow up with Dr. Helm for an elective endoscopy and colonoscopy once she is discharged. 4. Check stool guaiacs. Jose Carlos Frias MD
[2018-07-29] MEDS ORDERED: guaiFENesin 600 mg ER Tab PO ONE (02:35)
[2018-07-29] MEDS: Albuterol 0.083% Inhal Sol (2.5 mg/3 mL) UD INH ONE (03:01)
[2018-07-29 06:55] LABS: BASO # 0.01 K/mm3 (0.0-2.0); BASO % 0.2 % (0.0-3.0); EOS # 0.1 (0.0-0.7); EOS % 1.1 % (1.5-5.0); GRAN # 3.23 (1.4-6.5); GRAN % 69.8 % (50.0-68.0); HEMOGLOBIN 9.3 g/dL (12.0-16.0); LYMPH # 0.9 (1.2-3.4); MEAN CELL VOLUME 80.1 fl (80.0-105.0); MEAN CORPUSCULAR HEMOGLOBIN 24.4 pg (25.0-35.0); MEAN CORPUSCULAR HGB CONC 30.5 g/dl (31.0-37.0); MEAN PLATELET VOLUME 10.5 fl (7.0-11.0); MONO # 0.5 (0.1-0.6); MONO % 9.9 % (1.0-6.0); RBC 3.81 10^6/uL (3.5-6.1); RED CELL DISTRIBUTION WIDTH 16.6 % (11.5-14.5); WHITE BLOOD COUNT 4.6 10^3/uL (4.5-11.0)
[2018-07-29 07:12] LABS: ALB/GLOB RATIO 0.9 (1.1-1.8); ALBUMIN 3.4 g/dL (3.0-4.8); ALT/SGPT 23 U/L (7-56); AST/SGOT 47 U/L (14-36); BILIRUBIN,DIRECT 0.2 mg/dL (0.0-0.4); BLOOD UREA NITROGEN 7 mg/dL (7-21); CALCIUM 7.2 mg/dL (8.4-10.5); GFR NON-AFRICAN AMERICAN > 60
--- NOTE | 2018-07-29 07:40 | CP.CCUPN ---
<Dickson Elam L - Last Filed: 07/29/18 11:16> CCU Subjective - Physician Review Subjective (Free Text): Resident Progress Note for ICU Patient examined at bedside. Patient admits to some shortness of breath overnight which was resolved after albuterol and mucinex. States she is com fortable at rest, however still has weakness and dyspnea with exertion. Tolerating PO intake well. Denies fevers, chills, chest pain, abdominal pain, diarrhea, dysuria. Critical Care Time Spent (in minutes): 35 CCU Objective - Vital Signs / Intake & Output Vital Signs (Last 4 hours): Vital Signs Pulse 07/29/18 04:35 87 Intake and Output (Last 8hrs): Intake & Output 07/28/18 07/29/18 07/29/18 22:59 06:59 14:59 Intake Total 1970 1020 Output Total 0 Balance 1969 1020 Intake: IV 1370 720 Left Forearm 1370 Right Wrist 720 Oral 600 300 Blood Product 0 Red Blood Cells Cpd As1 0 Lr Unit [id number] Output: Stool 0 Emesis 0 - Physical Exam Head: Positive for: Atraumatic, Normocephalic Pupils: Positive for: PERRL Extroacular Muscles: Positive for: EOMI Conjunctiva: Positive for: Normal Mouth: Positive for: Moist Mucous Membranes Neck: Positive for: Normal Range of Motion. Negative for: JVD, Lymphadenopathy Respiratory/Chest: Positive for: Clear to Auscultation, Good Air Exchange. Negative for: Respiratory Distress, Accessory Muscle Use, Wheezes, Rales, Rhonchi Cardiovascular: Positive for: Regular Rate and Rhythm, Normal S1, S2, Peripheal Pulses Present. Negative for: Murmurs, Irregular Rhythm, Rub, Gallop Abdomen: Positive for: Normal Bowel Sounds. Negative for: Tenderness, Distention, Peritoneal Signs Upper Extremity: Positive for: Normal Inspection. Negative for: Cyanosis, Edema Lower Extremity: Positive for: Normal Inspection, NORMAL PULSES. Negative for: Edema, CALF TENDERNESS Neurological: Positive for: GCS=15, CN II-XII Intact, Speech Normal Skin: Positive for: Warm, Dry, Rashes, Normal Color Psychiatric: Positive for: Alert, Oriented x 3, Normal Insight, Normal Concentration - Medications Active Medications: Active Medications Generic Name Dose Route Start Last Admin Trade Name Freq PRN Reason Stop Dose Admin Acetaminophen 650 mg 07/27/18 17:35 07/28/18 17:40 Tylenol 325mg Tab PO 650 mg Q6 PRN Administration TEMP>=99.5F Acetaminophen 650 mg 07/27/18 17:35 Tylenol 650 Mg Supp RC Q6H PRN TEMP>=99.5F Docusate Sodium 100 mg 07/27/18 18:00 07/28/18 17:16 Colace PO Not Given TID WANDER Iron Sucrose 200 mg/ Sodium 110 mls @ 110 mls/hr 07/27/18 20:30 07/28/18 10:16 Chloride IVPB 07/31/18 10:59 110 mls/hr DAILY WANDER Administration Lactated Ringer's 1,000 mls @ 60 mls/hr 07/27/18 19:30 07/27/18 20:13 Lactated Ringer's IV 60 mls/hr .[id number] WANDER Administration Metoprolol Tartrate 25 mg 07/27/18 19:30 07/28/18 18:56 Lopressor PO 25 mg Q12H WANDER Administration Ondansetron HCl 4 mg 07/27/18 17:35 Zofran Inj IVP Q4H PRN Nausea/Vomiting Oseltamivir Phosphate 75 mg 07/28/18 10:00 07/28/18 17:41 Tamiflu Cap PO 08/02/18 09:52 75 mg BID WANDER Administration Protocol Pantoprazole Sodium 40 mg 07/28/18 06:00 07/28/18 05:25 Protonix Ec Tab PO 40 mg 0600 WANDER Administration Polyethylene Glycol 17 gm 07/27/18 18:00 07/28/18 17:16 Miralax PO Not Given BID WANDER - Patient Studies Lab Studies: Lab Studies 07/29/18 07/29/18 07/28/18 Range/Units 05:20 05:20 19:20 WBC 4.6 4.3 L D (4.5-11.0) 10^3/uL RBC 3.81 3.79 (3.5-6.1) 10^6/uL Hgb 9.3 L 9.4 L (12.0-16.0) g/dL Hct 30.5 L 30.2 L (36.0-48.0) % MCV 80.1 79.7 L (80.0-105.0) fl MCH 24.4 L 24.8 L (25.0-35.0) pg MCHC 30.5 L 31.1 (31.0-37.0) g/dl RDW 16.6 H 16.5 H (11.5-14.5) % Plt Count 370 345 (120.0-450.0) 10^3/uL MPV 10.5 10.2 (7.0-11.0) fl Gran % 69.8 H (50.0-68.0) % Lymph % (Auto) 19.0 L (22.0-35.0) % [place] % (Auto) 9.9 H (1.0-6.0) % Eos % (Auto) 1.1 L (1.5-5.0) % Baso % (Auto) 0.2 (0.0-3.0) % Gran # 3.23 (1.4-6.5) Lymph # (Auto) 0.9 L (1.2-3.4) [place] # (Auto) 0.5 (0.1-0.6) Eos # (Auto) 0.1 (0.0-0.7) Baso # (Auto) 0.01 (0.0-2.0) K/mm3 Sodium 136 (132-148) mmol/L Potassium 4.0 (3.6-5.0) mmol/L Chloride 101 (98-107) mmol/L Carbon Dioxide 27 (21-33) mmol/L Anion Gap 12 (10-20) BUN 7 (7-21) mg/dL Creatinine 0.8 (0.7-1.2) mg/dl Est GFR ( Amer) > 60 Est GFR (Non-Af Amer) > 60 Random Glucose 106 (70-110) mg/dL Calcium 7.2 L (8.4-10.5) mg/dL Phosphorus 4.7 H (2.5-4.5) mg/dL Magnesium 1.9 (1.7-2.2) mg/dL Total Bilirubin 0.6 (0.2-1.3) mg/dL Direct Bilirubin 0.2 (0.0-0.4) mg/dL AST 47 H D (14-36) U/L ALT 23 (7-56) U/L Alkaline Phosphatase 72 (38-126) U/L Total Protein 7.2 (5.8-8.3) g/dL Albumin 3.4 (3.0-4.8) g/dL Globulin 3.9 gm/dL Albumin/Globulin Ratio 0.9 L (1.1-1.8) Urine Color (YELLOW) Urine Appearance (CLEAR) Urine pH (4.7-8.0) Ur Specific [place] (1.005-1.035) Urine Protein (<30 mg/dL) mg/dL Urine Glucose (UA) (NEGATIVE) mg/dL Urine Ketones (NEGATIVE) mg/dL Urine Blood (NEGATIVE) Urine Nitrate (NEGATIVE) Urine Bilirubin (NEGATIVE) Urine Urobilinogen (<1 E.U./dL) E.U./dL Ur Leukocyte Esterase (NEGATIVE) Estela/uL Urine RBC (0-2) /hpf Urine WBC (0-6) /hpf Ur Epithelial Cells (0-5) /hpf Urine Bacteria (NEG) Stool Occult Blood (NEGATIVE) Hepatitis A IgM Ab (NEGATIVE) Hep Bs Antigen (NEGATIVE) Hep B Core IgM Ab (NEGATIVE) Hepatitis C Antibody (NEGATIVE) Influenza Typ A,B (EIA) (NEGATIVE) Blood Type Antibody Screen Crossmatch BBK History Checked 07/28/18 07/28/18 07/28/18 Range/Units 14:20 13:55 10:30 WBC (4.5-11.0) 10^3/uL RBC (3.5-6.1) 10^6/uL Hgb (12.0-16.0) g/dL Hct (36.0-48.0) % MCV (80.0-105.0) fl MCH (25.0-35.0) pg MCHC (31.0-37.0) g/dl RDW (11.5-14.5) % Plt Count (120.0-450.0) 10^3/uL MPV (7.0-11.0) fl Gran % (50.0-68.0) % Lymph % (Auto) (22.0-35.0) % [place] % (Auto) (1.0-6.0) % Eos % (Auto) (1.5-5.0) % Baso % (Auto) (0.0-3.0) % Gran # (1.4-6.5) Lymph # (Auto) (1.2-3.4) [place] # (Auto) (0.1-0.6) Eos # (Auto) (0.0-0.7) Baso # (Auto) (0.0-2.0) K/mm3 Sodium (132-148) mmol/L Potassium (3.6-5.0) mmol/L Chloride (98-107) mmol/L Carbon Dioxide (21-33) mmol/L Anion Gap (10-20) BUN (7-21) mg/dL Creatinine (0.7-1.2) mg/dl Est GFR ( Amer) Est GFR (Non-Af Amer) Random Glucose (70-110) mg/dL Calcium (8.4-10.5) mg/dL Phosphorus (2.5-4.5) mg/dL Magnesium (1.7-2.2) mg/dL Total Bilirubin (0.2-1.3) mg/dL Direct Bilirubin (0.0-0.4) mg/dL AST (14-36) U/L ALT (7-56) U/L Alkaline Phosphatase (38-126) U/L Total Protein (5.8-8.3) g/dL Albumin (3.0-4.8) g/dL Globulin gm/dL Albumin/Globulin Ratio (1.1-1.8) Urine Color Yellow (YELLOW) Urine Appearance Clear (CLEAR) Urine pH 6.0 (4.7-8.0) Ur Specific [place] 1.015 (1.005-1.035) Urine Protein Trace H (<30 mg/dL) mg/dL Urine Glucose (UA) Negative (NEGATIVE) mg/dL Urine Ketones Negative (NEGATIVE) mg/dL Urine Blood Negative (NEGATIVE) Urine Nitrate Negative (NEGATIVE) Urine Bilirubin Negative (NEGATIVE) Urine Urobilinogen 0.2 (<1 E.U./dL) E.U./dL Ur Leukocyte Esterase Negative (NEGATIVE) Estela/uL Urine RBC Negative (0-2) /hpf Urine WBC 1 - 3 (0-6) /hpf Ur Epithelial Cells 1 - 3 (0-5) /hpf Urine Bacteria Small (NEG) Stool Occult Blood Negative (NEGATIVE) Hepatitis A IgM Ab (NEGATIVE) Hep Bs Antigen (NEGATIVE) Hep B Core IgM Ab (NEGATIVE) Hepatitis C Antibody (NEGATIVE) Influenza Typ A,B (EIA) Negative for flu a/b (NEGATIVE) Blood Type Antibody Screen Crossmatch BBK History Checked 07/28/18 07/28/18 07/28/18 Range/Units 09:52 07:40 07:40 WBC 3.5 L D (4.5-11.0) 10^3/uL RBC 3.43 L (3.5-6.1) 10^6/uL Hgb 8.3 L (12.0-16.0) g/dL Hct 27.3 L (36.0-48.0) % MCV 79.6 L (80.0-105.0) fl MCH 24.2 L (25.0-35.0) pg MCHC 30.4 L (31.0-37.0) g/dl RDW 16.7 H (11.5-14.5) % Plt Count 329 (120.0-450.0) 10^3/uL MPV 10.3 (7.0-11.0) fl Gran % 63.7 (50.0-68.0) % Lymph % (Auto) 25.4 (22.0-35.0) % [place] % (Auto) 10.0 H (1.0-6.0) % Eos % (Auto) 0.6 L (1.5-5.0) % Baso % (Auto) 0.3 (0.0-3.0) % Gran # 2.23 (1.4-6.5) Lymph # (Auto) 0.9 L (1.2-3.4) [place] # (Auto) 0.4 (0.1-0.6) Eos # (Auto) 0.0 (0.0-0.7) Baso # (Auto) 0.01 (0.0-2.0) K/mm3 Sodium 134 (132-148) mmol/L Potassium 3.8 (3.6-5.0) mmol/L Chloride 101 (98-107) mmol/L Carbon Dioxide 26 (21-33) mmol/L Anion Gap 10 (10-20) BUN 9 (7-21) mg/dL Creatinine 0.7 (0.7-1.2) mg/dl Est GFR ( Amer) > 60 Est GFR (Non-Af Amer) > 60 Random Glucose 110 (70-110) mg/dL Calcium 7.0 L (8.4-10.5) mg/dL Phosphorus 4.9 H (2.5-4.5) mg/dL Magnesium 2.0 (1.7-2.2) mg/dL Total Bilirubin 0.6 (0.2-1.3) mg/dL Direct Bilirubin 0.3 (0.0-0.4) mg/dL AST 33 (14-36) U/L ALT 25 (7-56) U/L Alkaline Phosphatase 68 (38-126) U/L Total Protein 7.4 (5.8-8.3) g/dL Albumin 3.4 (3.0-4.8) g/dL Globulin 4.1 gm/dL Albumin/Globulin Ratio 0.8 L (1.1-1.8) Urine Color (YELLOW) Urine Appearance (CLEAR) Urine pH (4.7-8.0) Ur Specific [place] (1.005-1.035) Urine Protein (<30 mg/dL) mg/dL Urine Glucose (UA) (NEGATIVE) mg/dL Urine Ketones (NEGATIVE) mg/dL Urine Blood (NEGATIVE) Urine Nitrate (NEGATIVE) Urine Bilirubin (NEGATIVE) Urine Urobilinogen (<1 E.U./dL) E.U./dL Ur Leukocyte Esterase (NEGATIVE) Estela/uL Urine RBC (0-2) /hpf Urine WBC (0-6) /hpf Ur Epithelial Cells (0-5) /hpf Urine Bacteria (NEG) Stool Occult Blood (NEGATIVE) Hepatitis A IgM Ab Negative (NEGATIVE) Hep Bs Antigen Negative (NEGATIVE) Hep B Core IgM Ab Negative (NEGATIVE) Hepatitis C Antibody Negative (NEGATIVE) Influenza Typ A,B (EIA) (NEGATIVE) Blood Type Antibody Screen Crossmatch BBK History Checked 07/27/18 Range/Units 16:26 WBC (4.5-11.0) 10^3/uL RBC (3.5-6.1) 10^6/uL Hgb (12.0-16.0) g/dL Hct (36.0-48.0) % MCV (80.0-105.0) fl MCH (25.0-35.0) pg MCHC (31.0-37.0) g/dl RDW (11.5-14.5) % Plt Count (120.0-450.0) 10^3/uL MPV (7.0-11.0) fl Gran % (50.0-68.0) % Lymph % (Auto) (22.0-35.0) % [place] % (Auto) (1.0-6.0) % Eos % (Auto) (1.5-5.0) % Baso % (Auto) (0.0-3.0) % Gran # (1.4-6.5) Lymph # (Auto) (1.2-3.4) [place] # (Auto) (0.1-0.6) Eos # (Auto) (0.0-0.7) Baso # (Auto) (0.0-2.0) K/mm3 Sodium (132-148) mmol/L Potassium (3.6-5.0) mmol/L Chloride (98-107) mmol/L Carbon Dioxide (21-33) mmol/L Anion Gap (10-20) BUN (7-21) mg/dL Creatinine (0.7-1.2) mg/dl Est GFR ( Amer) Est GFR (Non-Af Amer) Random Glucose (70-110) mg/dL Calcium (8.4-10.5) mg/dL Phosphorus (2.5-4.5) mg/dL Magnesium (1.7-2.2) mg/dL Total Bilirubin (0.2-1.3) mg/dL Direct Bilirubin (0.0-0.4) mg/dL AST (14-36) U/L ALT (7-56) U/L Alkaline Phosphatase (38-126) U/L Total Protein (5.8-8.3) g/dL Albumin (3.0-4.8) g/dL Globulin gm/dL Albumin/Globulin Ratio (1.1-1.8) Urine Color (YELLOW) Urine Appearance (CLEAR) Urine pH (4.7-8.0) Ur Specific [place] (1.005-1.035) Urine Protein (<30 mg/dL) mg/dL Urine Glucose (UA) (NEGATIVE) mg/dL Urine Ketones (NEGATIVE) mg/dL Urine Blood (NEGATIVE) Urine Nitrate (NEGATIVE) Urine Bilirubin (NEGATIVE) Urine Urobilinogen (<1 E.U./dL) E.U./dL Ur Leukocyte Esterase (NEGATIVE) Estela/uL Urine RBC (0-2) /hpf Urine WBC (0-6) /hpf Ur Epithelial Cells (0-5) /hpf Urine Bacteria (NEG) Stool Occult Blood (NEGATIVE) Hepatitis A IgM Ab (NEGATIVE) Hep Bs Antigen (NEGATIVE) Hep B Core IgM Ab (NEGATIVE) Hepatitis C Antibody (NEGATIVE) Influenza Typ A,B (EIA) (NEGATIVE) Blood Type B POSITIVE Antibody Screen Negative Crossmatch See Detail BBK History Checked Patient has bt Laboratory Results - last 24 hr 07/27/18 07/28/18 07/28/18 16:26 07:40 07:40 WBC 3.5 L D RBC 3.43 L Hgb 8.3 L Hct 27.3 L MCV 79.6 L MCH 24.2 L MCHC 30.4 L RDW 16.7 H Plt Count 329 MPV 10.3 Gran % 63.7 Lymph % (Auto) 25.4 [place] % (Auto) 10.0 H Eos % (Auto) 0.6 L Baso % (Auto) 0.3 Gran # 2.23 Lymph # (Auto) 0.9 L [place] # (Auto) 0.4 Eos # (Auto) 0.0 Baso # (Auto) 0.01 Sodium 134 Potassium 3.8 Chloride 101 Carbon Dioxide 26 Anion Gap 10 BUN 9 Creatinine 0.7 Est GFR ( Amer) > 60 Est GFR (Non-Af Amer) > 60 Random Glucose 110 Calcium 7.0 L Phosphorus 4.9 H Magnesium 2.0 Total Bilirubin 0.6 Direct Bilirubin 0.3 AST 33 ALT 25 Alkaline Phosphatase 68 Total Protein 7.4 Albumin 3.4 Globulin 4.1 Albumin/Globulin Ratio 0.8 L Urine Color Urine Appearance Urine pH Ur Specific [place] Urine Protein Urine Glucose (UA) Urine Ketones Urine Blood Urine Nitrate Urine Bilirubin Urine Urobilinogen Ur Leukocyte Esterase Urine RBC Urine WBC Ur Epithelial Cells Urine Bacteria Stool Occult Blood Hepatitis A IgM Ab Hep Bs Antigen Hep B Core IgM Ab Hepatitis C Antibody Influenza Typ A,B (EIA) Blood Type B POSITIVE Antibody Screen Negative Crossmatch See Detail BBK History Checked Patient has bt 07/28/18 07/28/18 07/28/18 09:52 10:30 13:55 WBC RBC Hgb Hct MCV MCH MCHC RDW Plt Count MPV Gran % Lymph % (Auto) [place] % (Auto) Eos % (Auto) Baso % (Auto) Gran # Lymph # (Auto) [place] # (Auto) Eos # (Auto) Baso # (Auto) Sodium Potassium Chloride Carbon Dioxide Anion Gap BUN Creatinine Est GFR ( Amer) Est GFR (Non-Af Amer) Random Glucose Calcium Phosphorus Magnesium Total Bilirubin Direct Bilirubin AST ALT Alkaline Phosphatase Total Protein Albumin Globulin Albumin/Globulin Ratio Urine Color Yellow Urine Appearance Clear Urine pH 6.0 Ur Specific [place] 1.015 Urine Protein Trace H Urine Glucose (UA) Negative Urine Ketones Negative Urine Blood Negative Urine Nitrate Negative Urine Bilirubin Negative Urine Urobilinogen 0.2 Ur Leukocyte Esterase Negative Urine RBC Negative Urine WBC 1 - 3 Ur Epithelial Cells 1 - 3 Urine Bacteria Small Stool Occult Blood Hepatitis A IgM Ab Negative Hep Bs Antigen Negative Hep B Core IgM Ab Negative Hepatitis C Antibody Negative Influenza Typ A,B (EIA) Negative for flu a/b Blood Type Antibody Screen Crossmatch BBK History Checked 07/28/18 07/28/18 07/29/18 14:20 19:20 05:20 WBC 4.3 L D 4.6 RBC 3.79 3.81 Hgb 9.4 L 9.3 L Hct 30.2 L 30.5 L MCV 79.7 L 80.1 MCH 24.8 L 24.4 L MCHC 31.1 30.5 L RDW 16.5 H 16.6 H Plt Count 345 370 MPV 10.2 10.5 Gran % 69.8 H Lymph % (Auto) 19.0 L [place] % (Auto) 9.9 H Eos % (Auto) 1.1 L Baso % (Auto) 0.2 Gran # 3.23 Lymph # (Auto) 0.9 L [place] # (Auto) 0.5 Eos # (Auto) 0.1 Baso # (Auto) 0.01 Sodium Potassium Chloride Carbon Dioxide Anion Gap BUN Creatinine Est GFR ( Amer) Est GFR (Non-Af Amer) Random Glucose Calcium Phosphorus Magnesium Total Bilirubin Direct Bilirubin AST ALT Alkaline Phosphatase Total Protein Albumin Globulin Albumin/Globulin Ratio Urine Color Urine Appearance Urine pH Ur Specific [place] Urine Protein Urine Glucose (UA) Urine Ketones Urine Blood Urine Nitrate Urine Bilirubin Urine Urobilinogen Ur Leukocyte Esterase Urine RBC Urine WBC Ur Epithelial Cells Urine Bacteria Stool Occult Blood Negative Hepatitis A IgM Ab Hep Bs Antigen Hep B Core IgM Ab Hepatitis C Antibody Influenza Typ A,B (EIA) Blood Type Antibody Screen Crossmatch BBK History Checked 07/29/18 05:20 WBC RBC Hgb Hct MCV MCH MCHC RDW Plt Count MPV Gran % Lymph % (Auto) [place] % (Auto) Eos % (Auto) Baso % (Auto) Gran # Lymph # (Auto) [place] # (Auto) Eos # (Auto) Baso # (Auto) Sodium 136 Potassium 4.0 Chloride 101 Carbon Dioxide 27 Anion Gap 12 BUN 7 Creatinine 0.8 Est GFR ( Amer) > 60 Est GFR (Non-Af Amer) > 60 Random Glucose 106 Calcium 7.2 L Phosphorus 4.7 H Magnesium 1.9 Total Bilirubin 0.6 Direct Bilirubin 0.2 AST 47 H D ALT 23 Alkaline Phosphatase 72 Total Protein 7.2 Albumin 3.4 Globulin 3.9 Albumin/Globulin Ratio 0.9 L Urine Color Urine Appearance Urine pH Ur Specific [place] Urine Protein Urine Glucose (UA) Urine Ketones Urine Blood Urine Nitrate Urine Bilirubin Urine Urobilinogen Ur Leukocyte Esterase Urine RBC Urine WBC Ur Epithelial Cells Urine Bacteria Stool Occult Blood Hepatitis A IgM Ab Hep Bs Antigen Hep B Core IgM Ab Hepatitis C Antibody Influenza Typ A,B (EIA) Blood Type Antibody Screen Crossmatch BBK History Checked Radiology Impressions: Radiology Impressions Chest/Abdomen/Pelvis CT 07/27/18 19:29 IMPRESSION: Review of Systems - Review of Systems All systems: reviewed and no additional remarkable complaints except (as stated in HPI) Critical Care Progress Note - Extremities/Vascular Does the Patient have a Central Venous Catheter?: No Does the Patient have a Delatorre Catheter?: No - Prophylaxis GI Prophylaxis GI: PPI - Prophylaxis DVT Prophylaxis DVT: SCDs - Nutrition Nutrition: Nutrition Category Date Time Status Consistent Carbohydrate [DIET] Diets 07/27/18 Breakfast Ordered Assessment/Plan - Assessment and Plan (Free Text) Assessment: 67 year old female with PMH of HTN presenting with fatigue secondary to iron deficiency anemia and pericardial effusion. Plan: Neuro - AAOx3 - maintain normothermia Cardio - hemodynamically stable - ECHO shows cardiomegaly with large pericardial effusion, large hiatal hernia - Cardiology consulted. Recs appreciated. - Lopressor 25 mg PO Q12H - maintain MAP>65 mm Hg Pulm - maintain SaO2>92% Renal - no active issues GI - previous endo/colonoscopy from 2 years prior showed no source of blood loss - GI consulted. Recs appreciated. - Colace 100 mg PO TID - Miralax 17 gm PO BID - Protonix 40 mg PO daily Endo - maintain euglycemia Heme - s/p 2 units pRBCs - iron deficiency anemia as per outpatient workup - heme/onc consulted. Recs appreciated. - Venofer 200 mg IV daily - SCDs ID - afebrile, no leukocytosis - Tamiflu 75 mg PO BID - followup cultures Dispo: Labs and imaging reviewed. Patent optimized for transfer to telemetry. Case discussed with attending Dr. Landen Elam PGY-1 - Date & Time Date: 07/29/18 Time: 07:40 <My Schuster - Last Filed: 07/29/18 14:55> CCU Objective - Vital Signs / Intake & Output Vital Signs (Last 4 hours): Vital Signs Temp Pulse Resp BP 07/29/18 14:10 100.2 F H 07/29/18 14:06 93 H 163/82 H 07/29/18 14:01 161/81 H 07/29/18 12:00 100.2 F H 81 37 H 07/29/18 11:52 81 07/29/18 11:00 77 34 H 158/81 H Intake and Output (Last 8hrs): Intake & Output 07/28/18 07/29/18 07/29/18 22:59 06:59 14:59 Intake Total 1969 1020 Output Total 0 Balance 1969 1020 Intake: IV 1370 720 Left Forearm 1370 Right Wrist 720 Oral 600 300 Blood Product 0 Red Blood Cells Cpd As1 0 Lr Unit [id number] Output: Stool 0 Emesis 0 - Medications Active Medications: Active Medications Generic Name Dose Route Start Last Admin Trade Name Freq PRN Reason Stop Dose Admin Acetaminophen 650 mg 07/27/18 17:35 07/29/18 14:10 Tylenol 325mg Tab PO 650 mg Q6 PRN Administration TEMP>=99.5F Acetaminophen 650 mg 07/27/18 17:35 Tylenol 650 Mg Supp RC Q6H PRN TEMP>=99.5F Docusate Sodium 100 mg 07/27/18 18:00 07/29/18 14:01 Colace PO Not Given TID WANDER Furosemide 20 mg 07/29/18 10:30 07/29/18 10:30 Lasix IVP 20 mg Q12 WANDER Administration Iron Sucrose 200 mg/ Sodium 110 mls @ 110 mls/hr 07/27/18 20:30 07/29/18 09:56 Chloride IVPB 07/31/18 10:59 110 mls/hr DAILY WANDER Administration Levalbuterol HCl 0.63 mg 07/29/18 10:24 Xopenex IH [id number] PRN Shortness of Breath Levothyroxine Sodium 150 mcg 07/29/18 10:30 07/29/18 10:30 Synthroid PO 150 mcg DAILY WANDER Administration Metoprolol Tartrate 25 mg 07/29/18 10:46 07/29/18 14:06 Lopressor PO 25 mg Q8H WANDER Administration Ondansetron HCl 4 mg 07/27/18 17:35 Zofran Inj IVP Q4H PRN Nausea/Vomiting Pantoprazole Sodium 40 mg 07/28/18 06:00 07/29/18 10:00 Protonix Ec Tab PO 40 mg 0600 WANDER Administration Polyethylene Glycol 17 gm 07/27/18 18:00 07/29/18 14:05 Miralax PO Not Given BID WANDER - Patient Studies Lab Studies: Microbiology Studies 07/28/18 10:27 Blood Culture - Preliminary Blood NO GROWTH AFTER 24 HOURS 07/28/18 10:15 Blood Culture - Preliminary Blood NO GROWTH AFTER 24 HOURS 07/28/18 10:30 Urine Culture - Final Urine,Clean Catch No Growth (<1,000 CFU/ML) Lab Studies 07/29/18 07/29/18 07/29/18 Range/Units 06:00 05:30 05:20 WBC (4.5-11.0) 10^3/uL RBC (3.5-6.1) 10^6/uL Hgb (12.0-16.0) g/dL Hct (36.0-48.0) % MCV (80.0-105.0) fl MCH (25.0-35.0) pg MCHC (31.0-37.0) g/dl RDW (11.5-14.5) % Plt Count (120.0-450.0) 10^3/uL MPV (7.0-11.0) fl Gran % (50.0-68.0) % Lymph % (Auto) (22.0-35.0) % [place] % (Auto) (1.0-6.0) % Eos % (Auto) (1.5-5.0) % Baso % (Auto) (0.0-3.0) % Gran # (1.4-6.5) Lymph # (Auto) (1.2-3.4) [place] # (Auto) (0.1-0.6) Eos # (Auto) (0.0-0.7) Baso # (Auto) (0.0-2.0) K/mm3 ESR 104 H (0.0-20.0) mm/hr Sickle Cell Screen (Negative) Hemoglobinopathy Red Blood Count (3.80-5.10) Mill/mcL Hemoglobinopathy Hct (35.0-45.0) % Hemoglobinopathy Hgb (11.7-15.5) g/dL Hemoglobinopathy MCV (80.0-100.0) fL Hemoglobinopathy MCH (27.0-33.0) pg Hemoglobinopathy RDW (11.0-15.0) % Sodium 136 (132-148) mmol/L Potassium 4.0 (3.6-5.0) mmol/L Chloride 101 (98-107) mmol/L Carbon Dioxide 27 (21-33) mmol/L Anion Gap 12 (10-20) BUN 7 (7-21) mg/dL Creatinine 0.8 (0.7-1.2) mg/dl Est GFR ( Amer) > 60 Est GFR (Non-Af Amer) > 60 Random Glucose 106 (70-110) mg/dL Calcium 7.2 L (8.4-10.5) mg/dL Phosphorus 4.7 H (2.5-4.5) mg/dL Magnesium 1.9 (1.7-2.2) mg/dL Total Bilirubin 0.6 (0.2-1.3) mg/dL Direct Bilirubin 0.2 (0.0-0.4) mg/dL AST 47 H D (14-36) U/L ALT 23 (7-56) U/L Alkaline Phosphatase 72 (38-126) U/L Total Creatine Kinase 191 (35-230) U/L Troponin I < 0.01 ng/mL Total Protein 7.2 (5.8-8.3) g/dL Albumin 3.4 (3.0-4.8) g/dL Globulin 3.9 gm/dL Albumin/Globulin Ratio 0.9 L (1.1-1.8) Hepatitis A IgM Ab (NEGATIVE) Hep Bs Antigen (NEGATIVE) Hep B Core IgM Ab (NEGATIVE) Hepatitis C Antibody (NEGATIVE) HIV 1&2 Ag/Ab, 4th Gen (Nonreactive) Crossmatch 07/29/18 07/28/18 07/28/18 Range/Units 05:20 19:20 09:52 WBC 4.6 4.3 L D (4.5-11.0) 10^3/uL RBC 3.81 3.79 (3.5-6.1) 10^6/uL Hgb 9.3 L 9.4 L (12.0-16.0) g/dL Hct 30.5 L 30.2 L (36.0-48.0) % MCV 80.1 79.7 L (80.0-105.0) fl MCH 24.4 L 24.8 L (25.0-35.0) pg MCHC 30.5 L 31.1 (31.0-37.0) g/dl RDW 16.6 H 16.5 H (11.5-14.5) % Plt Count 370 345 (120.0-450.0) 10^3/uL MPV 10.5 10.2 (7.0-11.0) fl Gran % 69.8 H (50.0-68.0) % Lymph % (Auto) 19.0 L (22.0-35.0) % [place] % (Auto) 9.9 H (1.0-6.0) % Eos % (Auto) 1.1 L (1.5-5.0) % Baso % (Auto) 0.2 (0.0-3.0) % Gran # 3.23 (1.4-6.5) Lymph # (Auto) 0.9 L (1.2-3.4) [place] # (Auto) 0.5 (0.1-0.6) Eos # (Auto) 0.1 (0.0-0.7) Baso # (Auto) 0.01 (0.0-2.0) K/mm3 ESR (0.0-20.0) mm/hr Sickle Cell Screen (Negative) Hemoglobinopathy Red Blood Count (3.80-5.10) Mill/mcL Hemoglobinopathy Hct (35.0-45.0) % Hemoglobinopathy Hgb (11.7-15.5) g/dL Hemoglobinopathy MCV (80.0-100.0) fL Hemoglobinopathy MCH (27.0-33.0) pg Hemoglobinopathy RDW (11.0-15.0) % Sodium (132-148) mmol/L Potassium (3.6-5.0) mmol/L Chloride (98-107) mmol/L Carbon Dioxide (21-33) mmol/L Anion Gap (10-20) BUN (7-21) mg/dL Creatinine (0.7-1.2) mg/dl Est GFR ( Amer) Est GFR (Non-Af Amer) Random Glucose (70-110) mg/dL Calcium (8.4-10.5) mg/dL Phosphorus (2.5-4.5) mg/dL Magnesium (1.7-2.2) mg/dL Total Bilirubin (0.2-1.3) mg/dL Direct Bilirubin (0.0-0.4) mg/dL AST (14-36) U/L ALT (7-56) U/L Alkaline Phosphatase (38-126) U/L Total Creatine Kinase (35-230) U/L Troponin I ng/mL Total Protein (5.8-8.3) g/dL Albumin (3.0-4.8) g/dL Globulin gm/dL Albumin/Globulin Ratio (1.1-1.8) Hepatitis A IgM Ab (NEGATIVE) Hep Bs Antigen (NEGATIVE) Hep B Core IgM Ab (NEGATIVE) Hepatitis C Antibody (NEGATIVE) HIV 1&2 Ag/Ab, 4th Gen Nonreactive (Nonreactive) Crossmatch 07/28/18 07/28/18 07/28/18 Range/Units 09:52 07:40 07:40 WBC (4.5-11.0) 10^3/uL RBC (3.5-6.1) 10^6/uL Hgb (12.0-16.0) g/dL Hct (36.0-48.0) % MCV (80.0-105.0) fl MCH (25.0-35.0) pg MCHC (31.0-37.0) g/dl RDW (11.5-14.5) % Plt Count (120.0-450.0) 10^3/uL MPV (7.0-11.0) fl Gran % (50.0-68.0) % Lymph % (Auto) (22.0-35.0) % [place] % (Auto) (1.0-6.0) % Eos % (Auto) (1.5-5.0) % Baso % (Auto) (0.0-3.0) % Gran # (1.4-6.5) Lymph # (Auto) (1.2-3.4) [place] # (Auto) (0.1-0.6) Eos # (Auto) (0.0-0.7) Baso # (Auto) (0.0-2.0) K/mm3 ESR (0.0-20.0) mm/hr Sickle Cell Screen Negative (Negative) Hemoglobinopathy Red Blood Count 3.34 L (3.80-5.10) Mill/mcL Hemoglobinopathy Hct 26.4 L (35.0-45.0) % Hemoglobinopathy Hgb 8.5 L (11.7-15.5) g/dL Hemoglobinopathy MCV 78.9 L (80.0-100.0) fL Hemoglobinopathy MCH 25.4 L (27.0-33.0) pg Hemoglobinopathy RDW 18.7 H (11.0-15.0) % Sodium (132-148) mmol/L Potassium (3.6-5.0) mmol/L Chloride (98-107) mmol/L Carbon Dioxide (21-33) mmol/L Anion Gap (10-20) BUN (7-21) mg/dL Creatinine (0.7-1.2) mg/dl Est GFR ( Amer) Est GFR (Non-Af Amer) Random Glucose (70-110) mg/dL Calcium (8.4-10.5) mg/dL Phosphorus (2.5-4.5) mg/dL Magnesium (1.7-2.2) mg/dL Total Bilirubin (0.2-1.3) mg/dL Direct Bilirubin (0.0-0.4) mg/dL AST (14-36) U/L ALT (7-56) U/L Alkaline Phosphatase (38-126) U/L Total Creatine Kinase (35-230) U/L Troponin I ng/mL Total Protein (5.8-8.3) g/dL Albumin (3.0-4.8) g/dL Globulin gm/dL Albumin/Globulin Ratio (1.1-1.8) Hepatitis A IgM Ab Negative (NEGATIVE) Hep Bs Antigen Negative (NEGATIVE) Hep B Core IgM Ab Negative (NEGATIVE) Hepatitis C Antibody Negative (NEGATIVE) HIV 1&2 Ag/Ab, 4th Gen (Nonreactive) Crossmatch 07/27/18 Range/Units 16:26 WBC (4.5-11.0) 10^3/uL RBC (3.5-6.1) 10^6/uL Hgb (12.0-16.0) g/dL Hct (36.0-48.0) % MCV (80.0-105.0) fl MCH (25.0-35.0) pg MCHC (31.0-37.0) g/dl RDW (11.5-14.5) % Plt Count (120.0-450.0) 10^3/uL MPV (7.0-11.0) fl Gran % (50.0-68.0) % Lymph % (Auto) (22.0-35.0) % [place] % (Auto) (1.0-6.0) % Eos % (Auto) (1.5-5.0) % Baso % (Auto) (0.0-3.0) % Gran # (1.4-6.5) Lymph # (Auto) (1.2-3.4) [place] # (Auto) (0.1-0.6) Eos # (Auto) (0.0-0.7) Baso # (Auto) (0.0-2.0) K/mm3 ESR (0.0-20.0) mm/hr Sickle Cell Screen (Negative) Hemoglobinopathy Red Blood Count (3.80-5.10) Mill/mcL Hemoglobinopathy Hct (35.0-45.0) % Hemoglobinopathy Hgb (11.7-15.5) g/dL Hemoglobinopathy MCV (80.0-100.0) fL Hemoglobinopathy MCH (27.0-33.0) pg Hemoglobinopathy RDW (11.0-15.0) % Sodium (132-148) mmol/L Potassium (3.6-5.0) mmol/L Chloride (98-107) mmol/L Carbon Dioxide (21-33) mmol/L Anion Gap (10-20) BUN (7-21) mg/dL Creatinine (0.7-1.2) mg/dl Est GFR ( Amer) Est GFR (Non-Af Amer) Random Glucose (70-110) mg/dL Calcium (8.4-10.5) mg/dL Phosphorus (2.5-4.5) mg/dL Magnesium (1.7-2.2) mg/dL Total Bilirubin (0.2-1.3) mg/dL Direct Bilirubin (0.0-0.4) mg/dL AST (14-36) U/L ALT (7-56) U/L Alkaline Phosphatase (38-126) U/L Total Creatine Kinase (35-230) U/L Troponin I ng/mL Total Protein (5.8-8.3) g/dL Albumin (3.0-4.8) g/dL Globulin gm/dL Albumin/Globulin Ratio (1.1-1.8) Hepatitis A IgM Ab (NEGATIVE) Hep Bs Antigen (NEGATIVE) Hep B Core IgM Ab (NEGATIVE) Hepatitis C Antibody (NEGATIVE) HIV 1&2 Ag/Ab, 4th Gen (Nonreactive) Crossmatch See Detail Laboratory Results - last 24 hr 07/27/18 07/28/18 07/28/18 16:26 07:40 07:40 WBC RBC Hgb Hct MCV MCH MCHC RDW Plt Count MPV Gran % Lymph % (Auto) [place] % (Auto) Eos % (Auto) Baso % (Auto) Gran # Lymph # (Auto) [place] # (Auto) Eos # (Auto) Baso # (Auto) ESR Sickle Cell Screen Negative Hemoglobinopathy Red Blood Count 3.34 L Hemoglobinopathy Hct 26.4 L Hemoglobinopathy Hgb 8.5 L Hemoglobinopathy MCV 78.9 L Hemoglobinopathy MCH 25.4 L Hemoglobinopathy RDW 18.7 H Sodium Potassium Chloride Carbon Dioxide Anion Gap BUN Creatinine Est GFR ( Amer) Est GFR (Non-Af Amer) Random Glucose Calcium Phosphorus Magnesium Total Bilirubin Direct Bilirubin AST ALT Alkaline Phosphatase Total Creatine Kinase Troponin I Total Protein Albumin Globulin Albumin/Globulin Ratio Hepatitis A IgM Ab Hep Bs Antigen Hep B Core IgM Ab Hepatitis C Antibody HIV 1&2 Ag/Ab, 4th Gen Crossmatch See Detail 07/28/18 07/28/18 07/28/18 09:52 09:52 19:20 WBC 4.3 L D RBC 3.79 Hgb 9.4 L Hct 30.2 L MCV 79.7 L MCH 24.8 L MCHC 31.1 RDW 16.5 H Plt Count 345 MPV 10.2 Gran % Lymph % (Auto) [place] % (Auto) Eos % (Auto) Baso % (Auto) Gran # Lymph # (Auto) [place] # (Auto) Eos # (Auto) Baso # (Auto) ESR Sickle Cell Screen Hemoglobinopathy Red Blood Count Hemoglobinopathy Hct Hemoglobinopathy Hgb Hemoglobinopathy MCV Hemoglobinopathy MCH Hemoglobinopathy RDW Sodium Potassium Chloride Carbon Dioxide Anion Gap BUN Creatinine Est GFR ( Amer) Est GFR (Non-Af Amer) Random Glucose Calcium Phosphorus Magnesium Total Bilirubin Direct Bilirubin AST ALT Alkaline Phosphatase Total Creatine Kinase Troponin I Total Protein Albumin Globulin Albumin/Globulin Ratio Hepatitis A IgM Ab Negative Hep Bs Antigen Negative Hep B Core IgM Ab Negative Hepatitis C Antibody Negative HIV 1&2 Ag/Ab, 4th Gen Nonreactive Crossmatch 07/29/18 07/29/18 07/29/18 05:20 05:20 05:30 WBC 4.6 RBC 3.81 Hgb 9.3 L Hct 30.5 L MCV 80.1 MCH 24.4 L MCHC 30.5 L RDW 16.6 H Plt Count 370 MPV 10.5 Gran % 69.8 H Lymph % (Auto) 19.0 L [place] % (Auto) 9.9 H Eos % (Auto) 1.1 L Baso % (Auto) 0.2 Gran # 3.23 Lymph # (Auto) 0.9 L [place] # (Auto) 0.5 Eos # (Auto) 0.1 Baso # (Auto) 0.01 ESR 104 H Sickle Cell Screen Hemoglobinopathy Red Blood Count Hemoglobinopathy Hct Hemoglobinopathy Hgb Hemoglobinopathy MCV Hemoglobinopathy MCH Hemoglobinopathy RDW Sodium 136 Potassium 4.0 Chloride 101 Carbon Dioxide 27 Anion Gap 12 BUN 7 Creatinine 0.8 Est GFR ( Amer) > 60 Est GFR (Non-Af Amer) > 60 Random Glucose 106 Calcium 7.2 L Phosphorus 4.7 H Magnesium 1.9 Total Bilirubin 0.6 Direct Bilirubin 0.2 AST 47 H D ALT 23 Alkaline Phosphatase 72 Total Creatine Kinase Troponin I Total Protein 7.2 Albumin 3.4 Globulin 3.9 Albumin/Globulin Ratio 0.9 L Hepatitis A IgM Ab Hep Bs Antigen Hep B Core IgM Ab Hepatitis C Antibody HIV 1&2 Ag/Ab, 4th Gen Crossmatch 07/29/18 06:00 WBC RBC Hgb Hct MCV MCH MCHC RDW Plt Count MPV Gran % Lymph % (Auto) [place] % (Auto) Eos % (Auto) Baso % (Auto) Gran # Lymph # (Auto) [place] # (Auto) Eos # (Auto) Baso # (Auto) ESR Sickle Cell Screen Hemoglobinopathy Red Blood Count Hemoglobinopathy Hct Hemoglobinopathy Hgb Hemoglobinopathy MCV Hemoglobinopathy MCH Hemoglobinopathy RDW Sodium Potassium Chloride Carbon Dioxide Anion Gap BUN Creatinine Est GFR ( Amer) Est GFR (Non-Af Amer) Random Glucose Calcium Phosphorus Magnesium Total Bilirubin Direct Bilirubin AST ALT Alkaline Phosphatase Total Creatine Kinase 191 Troponin I < 0.01 Total Protein Albumin Globulin Albumin/Globulin Ratio Hepatitis A IgM Ab Hep Bs Antigen Hep B Core IgM Ab Hepatitis C Antibody HIV 1&2 Ag/Ab, 4th Gen Crossmatch Critical Care Progress Note - Nutrition Nutrition: Nutrition Category Date Time Status Consistent Carbohydrate [DIET] Diets 07/27/18 Breakfast Ordered Addendum Addendum: 07/29/18 14:55 MICU Attending Addendum: 67 year old female with PMH of HTN presenting with fatigue secondary to iron deficiency anemia and pericardial effusion. HB stable now. Hemodynamically stable, not tachycardic and not hypotensive. No signs of tamponae at the moment however will observe until repeat echo tomorrow. My Schuster MD Pulmonary Critical Care Attending
[2018-07-29] MEDS ORDERED: Albuterol-Ipratrop 3 mg / 0.5 (3 ml) UD IH PRN (08:27)
[2018-07-29 09:05] LABS: TROPONIN I < 0.01 ng/mL
[2018-07-29] MEDS: Lactated Ringer's 1,000 ML IV SCH (09:56)
[2018-07-29] MEDS: Pantoprazole 40 mg EC Tab PO SCH (10:00)
[2018-07-29 10:02] LABS: MCH 25.4 pg (27.0-33.0); MCV 78.9 fL (80.0-100.0)
[2018-07-29] MEDS ORDERED: Levalbuterol 0.63 MG/3 ML Inhal Soln UD IH PRN (10:24)
[2018-07-29 10:25] LABS: SICKLE CELL SCREEN Negative (Negative)
[2018-07-29] MEDS: Levothyroxine 150 MCG TAB PO SCH (10:30)
--- NOTE | 2018-07-29 11:59 | PN ---
DATE: 07/29/2018 SUBJECTIVE: The patient is now in ICU, bed 6. Overnight notes and evaluation by Cardiology, echocardiogram results evaluation noted. The patient was transferred to ICU by Cardiology after evaluation and after the echo results were available later yesterday. The patient overnight nurse's notes were reviewed. The patient is comfortable in ICU bed 6. The patient's shortness of breath is still there but less than which the patient presented with to the emergency room. The patient denies any chest pain at present. Denies any bleeding. OBJECTIVE: VITAL SIGNS: T-max is down to 100.8 in the last 24 hours down to 98.7, telemetry shows sinus rhythm, heart rate 87-90, blood pressure 168/77 last recorded, respirations 21, O2 sat 95%. GENERAL: The patient is seen. HEAD: Normocephalic, atraumatic. HEENT examination shows pinkish pale conjunctivae. Anicteric sclerae. No oropharyngeal lesion. NECK: No neck rigidity. CHEST: Kyphosis. LUNGS: Shows decreased breath sound at the bases, left more than the right. CARDIOVASCULAR: S1, S2, regular rhythm. Questionable soft systolic murmur left sternal border, right second intercostal space, left second intercostal space. ABDOMEN: Soft. Positive bowel sounds. Protuberant. No palpable hepatosplenomegaly noted. GENITALIA: Female. RECTAL: Deferred. EXTREMITIES: Shows no pitting edema, no calf tenderness, no Homans' sign. NEUROLOGIC: The patient is alert, awake, responsive. Neuro examination is limited due to the patient is at bedrest. Cranial nerves II-XII limited. MUSCULOSKELETAL: Shows an elevated body mass index. VASCULAR: Palpable pulses. Diagnostics from 07/29, WBC 4.6, hemoglobin/hematocrit is 9.3, 30.5, platelet 370. Sodium 136, potassium 4.0, chloride 101, CO2 27, BUN 7, creatinine 0.8, glucose 106, calcium 7.2, phosphorus 4.7, magnesium 1.9, AST 47. Stool occult blood negative x1. Hepatitis A, B serologies negative. Influenza titer negative. The patient received 2 units of PRBCs. Official echo results is available which shows left ventricle ejection fraction 62%. Right ventricular systolic pressure 46 mmHg, left ventricular hypertrophy. Grade 1 abnormal relaxation pattern, moderately enlarged left atrium and right atrial enlargement, moderate pulmonary hypertension, mild tricuspid and moderate circumferential body effusion with diastolic compression of the right atrial pericardial effusion. EKG from today is pending. CPK, troponin is pending. IMPRESSION AND PLAN: 1. Severe symptomatic anemia with symptoms of shortness of breath, weakness and fatigue and tiredness. 2. Moderate circumferential pericardial effusion with diastolic compression of the right atrium, pericardial effusion. 3. Severe symptomatic anemia. 4. Status post packed red blood cell transfusion. 5. Normocytic anemia. 6. Hypocalcemia. 7. Elevated AST. 8. Status post packed red blood cell transfusion x2. 9. Hypertension. 10. Fever. 11. Pulmonary hypertension. 12. Left ventricular hypertrophy. 13 Grade 1 abnormal relaxation pattern. 14. Biatrial enlargement. 15. Moderate pulmonary hypertension and mild tricuspid regurgitation. 16. Moderate circumferential pericardial effusion with diastolic compression of the right atrial pericardial effusion. 17. History of ventral herniorrhaphy. 18. History of thyroidectomy. 19 History of hypothyroidism. 20. History of right parotid tumor surgery. PLAN: Plan at this time, the patient was evaluated by tube rebuilder, Dr. Butler, recommended the patient to be transferred to ICU where the patient is being presently managed. The patient will be undergoing repeat echocardiogram as per Cardiology recommendation within next 24-48 hours. The patient will be monitored closely in ICU. Depending upon the repeat echocardiogram and further Cardiology recommendation, the patient may or may not or may not be intervention for the pericardial effusion. Again, it will be dependent upon the recommendation by Cardiology and repeat echocardiogram. At present, the patient's condition and prognosis is guarded. The patient will be monitored in ICU. The patient has been updated about her condition in layman's language. All questions and concern answered, which she acknowledged and understands. At present, the patient will be followed by Cardiology, Hematology/Oncology and Gastroenterology. The patient will continue on both GI, DVT prophylaxis. The patient will continue on PRBC transfusion if needed, the patient will continue on iron infusion. The patient will continue with GI, Cardiology and Hematology/Oncology followup. Time spent in the entire management 35 minutes or more. Dictated and electronically signed, not read. Alexander Moreland MD
--- NOTE | 2018-07-29 13:52 | PN ---
DATE: 07/29/2018 SUBJECTIVE: The patient is seen in her ICU bed. She is resting comfortably. She still admits to dyspnea with minimal exertion. Echocardiogram revealed diastolic compression of the pericardial effusion on her atrium. She is in ICU for close observation for concern of cardiac tamponade. OBJECTIVE: VITAL SIGNS: Reveal temperature of 98.7, heart rate of 90, blood pressure of 168/77. HEENT: Reveals sclerae to be white. Conjunctivae pale. NECK: Supple. CHEST: Revealed lungs to be clear. HEART: Exam reveals regular rate and rhythm. ABDOMEN: Soft, nontender. EXTREMITIES: Show trace pedal edema. LABORATORY DATA: Reveal hemoglobin 9.3, white blood cell count 4.6, platelet count 370,000. Chemistries reveal normal electrolytes. AST 47, ALT 23, calcium 7.2, phosphorus of 4.7. Serology show negative hepatitis serology. Stool for occult blood is negative. IMPRESSION: This is a 67-year-old female with chronic anemia, admitted to the hospital with anemia and dyspnea on exertion. It was felt that her dyspnea on exertion was secondary to anemia. However, the patient was found to have a large pericardial effusion with concern for cardiac tamponade. I suspect that this is the true cause of her dyspnea on exertion. Stool for occult blood is negative. She had a negative endoscopy, colonoscopy about 2 years ago. RECOMMENDATIONS: Continue further treatment and workup as per cardiology. With a negative stool guaiac, no plans for endoscopy and colonoscopy at this time. 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 Jose Carlos Frias MD [facility]
[2018-07-29] MEDS: POLYETHYLENE GLYCOL 3350 17 GM/Dose PACKET PO SCH ×2 (14:05→17:50)
--- NOTE | 2018-07-29 15:58 | CP.PCM.APN ---
Subjective - Date & Time of Evaluation Date of Evaluation: 07/29/18 Time of Evaluation: 15:00 - Subjective Subjective: 67 year old female, with past medical history of hypertension and hypothyroidism Iron deficient anemia,, presents to the ED complaining of generalized weakness and chills since past week. Patient reports recent completion of Iron pills prescribed by her PMD secondary to abnormal blood results. Patient received 1 unit of PRBCs in the outpatient clinic, for initial Hgb 6.5. After transfusion patient developed fever 102 and repeat Hgb in ED was 8.3, pt admitted for symptomatic anemia. Pt. seen and examined in ICU bed. Appeared comfortable, able to speak in full sentences with no dyspnea, states getting short of breath upon exertion, denied chest pain, states feels a little better today. Review of Systems - Review of Systems All systems: reviewed and no additional remarkable complaints except - Cardiovascular Cardiovascular: Dyspnea on Exertion - Respiratory Respiratory: Dyspnea on Exertion - Gastrointestinal Gastrointestinal: As Per HPI - Genitourinary Additional comments: reports urinating frequently due to effect of Lasix Objective - Vital Signs/Intake and Output Vital Signs (last 24 hours): Temp Pulse Resp BP Pulse Ox 100.2 F H 93 H 37 H 163/82 H 95 07/29/18 14:10 07/29/18 14:06 07/29/18 12:00 07/29/18 14:06 07/29/18 06:00 Intake and Output: 07/29/18 07/29/18 06:59 18:59 Intake Total 2990 Output Total 0 Balance 2990 - Medications Medications: Current Medications Acetaminophen (Tylenol 325mg Tab) 650 mg PO Q6 PRN PRN Reason: TEMP>=99.5F Last Admin: 07/29/18 14:10 Dose: 650 mg Acetaminophen (Tylenol 650 Mg Supp) 650 mg RC Q6H PRN PRN Reason: TEMP>=99.5F Docusate Sodium (Colace) 100 mg PO TID REPLACED BY [facility] Last Admin: 07/29/18 14:01 Dose: Not Given Furosemide (Lasix) 20 mg IVP Q12 [facility] Last Admin: 07/29/18 10:30 Dose: 20 mg Iron Sucrose 200 mg/ Sodium (Chloride) 110 mls @ 110 mls/hr IVPB DAILY [facility] Stop: 07/31/18 10:59 Last Admin: 07/29/18 09:56 Dose: 110 mls/hr Levalbuterol HCl (Xopenex) 0.63 mg IH [id number] PRN PRN Reason: Shortness of Breath Levothyroxine Sodium (Synthroid) 150 mcg PO DAILY REPLACED BY [facility] Last Admin: 07/29/18 10:30 Dose: 150 mcg Metoprolol Tartrate (Lopressor) 25 mg PO Q8H REPLACED BY [facility] Last Admin: 07/29/18 14:06 Dose: 25 mg Ondansetron HCl (Zofran Inj) 4 mg IVP Q4H PRN PRN Reason: Nausea/Vomiting Pantoprazole Sodium (Protonix Ec Tab) 40 mg PO 0600 REPLACED BY [facility] Last Admin: 07/29/18 10:00 Dose: 40 mg Polyethylene Glycol (Miralax) 17 gm PO BID REPLACED BY [facility] Last Admin: 07/29/18 14:05 Dose: Not Given - Labs Labs: 07/29/18 05:20 07/29/18 05:20 PT 14.6 SECONDS (9.4-12.5) H 07/27/18 20:53 INR 1.27 07/27/18 20:53 APTT 27.7 Seconds (25.1-36.5) 07/27/18 20:53 - Constitutional Appears: No Acute Distress - Head Exam Head Exam: NORMAL INSPECTION - Eye Exam Eye Exam: Normal appearance - ENT Exam ENT Exam: Mucous Membranes Moist - Neck Exam Neck Exam: Normal Inspection - Respiratory Exam Respiratory Exam: Clear to Ausculation Bilateral - Cardiovascular Exam Cardiovascular Exam: REGULAR RHYTHM, +S1, +S2, Murmur - GI/Abdominal Exam GI & Abdominal Exam: Soft, Normal Bowel Sounds - Rectal Exam Rectal Exam: Deferred - Extremities Exam Extremities Exam: Normal Inspection - Neurological Exam Neurological Exam: Alert, Awake, Oriented x3 - Skin Skin Exam: Normal Color, Warm Assessment and Plan - Assessment and Plan (Free Text) Assessment: 1. Symptomatic Anemia, s/p 2 units PRBCS, Hgb improved. Continue to follow and trend h/h. 2. Large pericardial effusion with possible atrial diastolic compression . Iv Diuresis as per cardiology, check repeat echo tommorow as per ramp flight attendant, monitor in ICU as per ramp flight attendant. 3. Iron Deficient Anemia To receive total 5 bags of IV Venofer. 4. Fever most likely secondary to blood transfusion continue to tend temp. Further recommendation pending results of workup and patient's clinical status. Will continue to discuss with consultants and follow clinical status and monitor closely.
--- NOTE | 2018-07-29 23:27 | CP.PCM.PN ---
Subjective - Date & Time of Evaluation Date of Evaluation: 07/28/18 Time of Evaluation: 15:00 - Subjective Subjective: Has some shortness of breath. Echo results noted. Objective - Vital Signs/Intake and Output Vital Signs (last 24 hours): Temp Pulse Resp BP Pulse Ox 99.2 F 93 H 30 H 142/70 99 07/29/18 20:00 07/29/18 17:52 07/29/18 17:00 07/29/18 20:59 07/29/18 17:00 Intake and Output: 07/29/18 07/30/18 18:59 06:59 Intake Total 1670 Balance 1670 - Medications Medications: Current Medications Acetaminophen (Tylenol 325mg Tab) 650 mg PO Q6 PRN PRN Reason: TEMP>=99.5F Last Admin: 07/29/18 14:10 Dose: 650 mg Acetaminophen (Tylenol 650 Mg Supp) 650 mg RC Q6H PRN PRN Reason: TEMP>=99.5F Docusate Sodium (Colace) 100 mg PO TID [facility] Last Admin: 07/29/18 17:50 Dose: Not Given Furosemide (Lasix) 20 mg IVP Q12 [facility]ANDER Last Admin: 07/29/18 20:59 Dose: 20 mg Iron Sucrose 200 mg/ Sodium (Chloride) 110 mls @ 110 mls/hr IVPB DAILY [facility] Stop: 07/31/18 10:59 Last Admin: 07/29/18 09:56 Dose: 110 mls/hr Levalbuterol HCl (Xopenex) 0.63 mg IH [id number] PRN PRN Reason: Shortness of Breath Levothyroxine Sodium (Synthroid) 150 mcg PO DAILY [facility] Last Admin: 07/29/18 10:30 Dose: 150 mcg Metoprolol Tartrate (Lopressor) 25 mg PO Q8H [facility] Last Admin: 07/29/18 17:52 Dose: 25 mg Ondansetron HCl (Zofran Inj) 4 mg IVP Q4H PRN PRN Reason: Nausea/Vomiting Pantoprazole Sodium (Protonix Ec Tab) 40 mg PO 0600 [facility] Last Admin: 07/29/18 10:00 Dose: 40 mg Polyethylene Glycol (Miralax) 17 gm PO BID [facility] Last Admin: 07/29/18 17:50 Dose: Not Given - Labs Labs: 07/29/18 05:20 07/29/18 05:20 PT 14.6 SECONDS (9.4-12.5) H 07/27/18 20:53 INR 1.27 07/27/18 20:53 APTT 27.7 Seconds (25.1-36.5) 07/27/18 20:53 - Head Exam Head Exam: ATRAUMATIC - Eye Exam Eye Exam: Normal appearance - ENT Exam ENT Exam: Mucous Membranes Dry - Respiratory Exam Respiratory Exam: NORMAL BREATHING PATTERN - Cardiovascular Exam Cardiovascular Exam: +S1, +S2 - GI/Abdominal Exam GI & Abdominal Exam: Normal Bowel Sounds Assessment and Plan (1) Anemia Assessment & Plan: iron deficiency s/p PRBC transfusion on IV iron GI w/u Status: Acute (2) Leukopenia Assessment & Plan: mild benign Status: Acute
--- NOTE | 2018-07-29 23:29 | CP.PCM.PN ---
Subjective - Date & Time of Evaluation Date of Evaluation: 07/29/18 Time of Evaluation: 18:00 - Subjective Subjective: Feeling better. Objective - Vital Signs/Intake and Output Vital Signs (last 24 hours): Temp Pulse Resp BP Pulse Ox 99.2 F 93 H 30 H 142/70 99 07/29/18 20:00 07/29/18 17:52 07/29/18 17:00 07/29/18 20:59 07/29/18 17:00 Intake and Output: 07/29/18 07/30/18 18:59 06:59 Intake Total 1670 Balance 1670 - Medications Medications: Current Medications Acetaminophen (Tylenol 325mg Tab) 650 mg PO Q6 PRN PRN Reason: TEMP>=99.5F Last Admin: 07/29/18 14:10 Dose: 650 mg Acetaminophen (Tylenol 650 Mg Supp) 650 mg RC Q6H PRN PRN Reason: TEMP>=99.5F Docusate Sodium (Colace) 100 mg PO TID [facility] Last Admin: 07/29/18 17:50 Dose: Not Given Furosemide (Lasix) 20 mg IVP Q12 [facility] Last Admin: 07/29/18 20:59 Dose: 20 mg Iron Sucrose 200 mg/ Sodium (Chloride) 110 mls @ 110 mls/hr IVPB DAILY [facility] Stop: 07/31/18 10:59 Last Admin: 07/29/18 09:56 Dose: 110 mls/hr Levalbuterol HCl (Xopenex) 0.63 mg IH [id number] PRN PRN Reason: Shortness of Breath Levothyroxine Sodium (Synthroid) 150 mcg PO DAILY [facility] Last Admin: 07/29/18 10:30 Dose: 150 mcg Metoprolol Tartrate (Lopressor) 25 mg PO Q8H [facility] Last Admin: 07/29/18 17:52 Dose: 25 mg Ondansetron HCl (Zofran Inj) 4 mg IVP Q4H PRN PRN Reason: Nausea/Vomiting Pantoprazole Sodium (Protonix Ec Tab) 40 mg PO 0600 [facility] Last Admin: 07/29/18 10:00 Dose: 40 mg Polyethylene Glycol (Miralax) 17 gm PO BID [facility] Last Admin: 07/29/18 17:50 Dose: Not Given - Labs Labs: 07/29/18 05:20 07/29/18 05:20 PT 14.6 SECONDS (9.4-12.5) H 07/27/18 20:53 INR 1.27 07/27/18 20:53 APTT 27.7 Seconds (25.1-36.5) 07/27/18 20:53 - Head Exam Head Exam: ATRAUMATIC - Eye Exam Eye Exam: Normal appearance - ENT Exam ENT Exam: Mucous Membranes Dry - Respiratory Exam Respiratory Exam: NORMAL BREATHING PATTERN - Cardiovascular Exam Cardiovascular Exam: +S1, +S2 - GI/Abdominal Exam GI & Abdominal Exam: Normal Bowel Sounds Assessment and Plan (1) Anemia Assessment & Plan: iron deficiency s/p PRBC Venofer GI w/u Status: Acute
[2018-07-30] MEDS: Pantoprazole 40 mg EC Tab PO SCH (05:04)
[2018-07-30 06:38] LABS: BASO # 0.01 K/mm3 (0.0-2.0); BASO % 0.2 % (0.0-3.0); EOS # 0.1 (0.0-0.7); EOS % 2.4 % (1.5-5.0); GRAN # 3.05 (1.4-6.5); GRAN % 65.3 % (50.0-68.0); HEMOGLOBIN 9.7 g/dL (12.0-16.0); LYMPH # 1.1 (1.2-3.4); MEAN CELL VOLUME 80.9 fl (80.0-105.0); MEAN CORPUSCULAR HEMOGLOBIN 24.4 pg (25.0-35.0); MEAN CORPUSCULAR HGB CONC 30.1 g/dl (31.0-37.0); MEAN PLATELET VOLUME 10.2 fl (7.0-11.0); MONO # 0.4 (0.1-0.6); MONO % 8.1 % (1.0-6.0); RBC 3.98 10^6/uL (3.5-6.1); RED CELL DISTRIBUTION WIDTH 16.9 % (11.5-14.5); WHITE BLOOD COUNT 4.7 10^3/uL (4.5-11.0)
[2018-07-30 07:07] LABS: ALB/GLOB RATIO 0.9 (1.1-1.8); ALBUMIN 3.7 g/dL (3.0-4.8); ALT/SGPT 20 U/L (7-56); AST/SGOT 30 U/L (14-36); BILIRUBIN,DIRECT 0.2 mg/dL (0.0-0.4); BLOOD UREA NITROGEN 10 mg/dL (7-21); CALCIUM 7.4 mg/dL (8.4-10.5); GFR NON-AFRICAN AMERICAN > 60
--- NOTE | 2018-07-30 08:35 | PN ---
DATE: 07/29/2018 CARDIOLOGY FOLLOWUP SUBJECTIVE: The patient received 2 units of packed red blood cells. She is not dizzy, but she does complain of mild dyspnea. PHYSICAL EXAMINATION: VITAL SIGNS: Blood pressure is 158/81, heart rate is in the 80s. NECK: Negative JVD. LUNGS: Decreased breath sounds bilaterally. HEART: S1 and S2. No rub noted. EXTREMITIES: Without change. LABORATORY DATA: BUN and creatinine unremarkable. Troponin is negative x2. Hemoglobin is pending. IMPRESSION: 1. Pericardial effusion. 2. Anemia. 3. Hypertension. 4. Dyspnea, which can be consistent with congestive heart failure. PLAN: Given these findings, we will give Lasix 40 IV stat. We will repeat an echocardiogram in the morning to see whether there is any change and to rule out early tamponade. Mookie Butler MD
[2018-07-30] MEDS: Levothyroxine 150 MCG TAB PO SCH (09:23)
[2018-07-30] MEDS: POLYETHYLENE GLYCOL 3350 17 GM/Dose PACKET PO SCH ×2 (09:26→17:46)
--- NOTE | 2018-07-30 13:48 | CP.CCUPN ---
<Stephen Isaac - Last Filed: 07/30/18 14:18> CCU Subjective - Physician Review Subjective (Free Text): Stephen Isaac DO, PGY1. ICU progress note for Dr Schuster Patient seen and examined at bedside. She is AAOx3 in NAD. She reported no complaints Her symptoms of muscle weakness and fatigue improved after blood transfusion. She denied symptoms of CP, SOB, palpitayions, GALLARDO, blurry vision, N/V/D CCU Objective - Vital Signs / Intake & Output Vital Signs (Last 4 hours): Vital Signs Pulse BP 07/30/18 10:11 83 139/65 Intake and Output (Last 8hrs): Intake & Output 07/29/18 07/30/18 07/30/18 22:59 06:59 14:59 Intake Total 1670 400 Output Total 0 Balance 1670 400 Weight 226 lb Intake: IV 770 Left Forearm 770 Oral 900 400 Output: Stool 0 Emesis 0 Other: # Voids Urine, Voided 3 3 - Physical Exam Head: Positive for: Atraumatic, Normocephalic Pupils: Positive for: PERRL Extroacular Muscles: Positive for: EOMI Conjunctiva: Positive for: Normal Mouth: Positive for: Moist Mucous Membranes Neck: Positive for: Normal Range of Motion. Negative for: JVD, Lymphadenopathy Respiratory/Chest: Positive for: Clear to Auscultation, Good Air Exchange. Negative for: Respiratory Distress, Accessory Muscle Use, Wheezes, Rales, Rhonchi Cardiovascular: Positive for: Regular Rate and Rhythm, Normal S1, S2, Peripheal Pulses Present. Negative for: Murmurs, Irregular Rhythm, Rub, Gallop Abdomen: Positive for: Normal Bowel Sounds. Negative for: Tenderness, Distention, Peritoneal Signs Upper Extremity: Positive for: Normal Inspection. Negative for: Cyanosis, Edema Lower Extremity: Positive for: Normal Inspection, NORMAL PULSES. Negative for: Edema, CALF TENDERNESS Neurological: Positive for: GCS=15, CN II-XII Intact, Speech Normal Skin: Positive for: Warm, Dry, Rashes, Normal Color Psychiatric: Positive for: Alert, Oriented x 3, Normal Insight, Normal Concentration - Medications Active Medications: Active Medications Generic Name Dose Route Start Last Admin Trade Name Freq PRN Reason Stop Dose Admin Acetaminophen 650 mg 07/27/18 17:35 07/29/18 14:10 Tylenol 325mg Tab PO 650 mg Q6 PRN Administration TEMP>=99.5F Calcium Acetate 1,334 mg 07/30/18 12:00 Phoslo PO WM WANDER Docusate Sodium 100 mg 07/27/18 18:00 07/30/18 09:22 Colace PO 100 mg TID WANDER Administration Furosemide 20 mg 07/29/18 10:30 07/30/18 09:23 Lasix IVP 20 mg Q12 WANDER Administration Iron Sucrose 200 mg/ Sodium 110 mls @ 110 mls/hr 07/27/18 20:30 07/30/18 09:23 Chloride IVPB 07/31/18 10:59 110 mls/hr DAILY WANDER Administration Levalbuterol HCl 0.63 mg 07/29/18 10:24 Xopenex IH [id number] PRN Shortness of Breath Levothyroxine Sodium 150 mcg 07/29/18 10:30 07/30/18 09:23 Synthroid PO 150 mcg DAILY WANDER Administration Metoprolol Tartrate 25 mg 07/29/18 10:46 07/30/18 10:11 Lopressor PO 25 mg Q8H WANDER Administration Ondansetron HCl 4 mg 07/27/18 17:35 Zofran Inj IVP Q4H PRN Nausea/Vomiting Pantoprazole Sodium 40 mg 07/28/18 06:00 07/30/18 05:04 Protonix Ec Tab PO 40 mg 0600 WANDER Administration Polyethylene Glycol 17 gm 07/27/18 18:00 07/30/18 09:26 Miralax PO Not Given BID WANDER - Patient Studies Lab Studies: Microbiology Studies 07/28/18 10:27 Blood Culture - Preliminary Blood NO GROWTH AFTER 48 HOURS 07/28/18 10:15 Blood Culture - Preliminary Blood NO GROWTH AFTER 48 HOURS 07/28/18 16:28 MRSA Culture (Admit) - Final Naris MRSA NOT DETECTED 07/28/18 10:30 Urine Culture - Final Urine,Clean Catch No Growth (<1,000 CFU/ML) Lab Studies 07/30/18 07/30/18 07/30/18 Range/Units 11:30 05:30 05:30 WBC 4.7 (4.5-11.0) 10^3/uL RBC 3.98 (3.5-6.1) 10^6/uL Hgb 9.7 L (12.0-16.0) g/dL Hct 32.2 L (36.0-48.0) % MCV 80.9 (80.0-105.0) fl MCH 24.4 L (25.0-35.0) pg MCHC 30.1 L (31.0-37.0) g/dl RDW 16.9 H (11.5-14.5) % Plt Count 455 H (120.0-450.0) 10^3/uL MPV 10.2 (7.0-11.0) fl Gran % 65.3 (50.0-68.0) % Lymph % (Auto) 24.0 (22.0-35.0) % Pope % (Auto) 8.1 H (1.0-6.0) % Eos % (Auto) 2.4 (1.5-5.0) % Baso % (Auto) 0.2 (0.0-3.0) % Gran # 3.05 (1.4-6.5) Lymph # (Auto) 1.1 L (1.2-3.4) Pope # (Auto) 0.4 (0.1-0.6) Eos # (Auto) 0.1 (0.0-0.7) Baso # (Auto) 0.01 (0.0-2.0) K/mm3 ESR 104 H (0.0-20.0) mm/hr Sodium 136 (132-148) mmol/L Potassium 4.1 (3.6-5.0) mmol/L Chloride 99 (98-107) mmol/L Carbon Dioxide 28 (21-33) mmol/L Anion Gap 13 (10-20) BUN 10 (7-21) mg/dL Creatinine 0.9 (0.7-1.2) mg/dl Est GFR ( Amer) > 60 Est GFR (Non-Af Amer) > 60 Random Glucose 109 (70-110) mg/dL Calcium 7.4 L (8.4-10.5) mg/dL Phosphorus 5.0 H (2.5-4.5) mg/dL Magnesium 1.9 (1.7-2.2) mg/dL Erythropoietin (2.6-18.5) mIU/mL Total Bilirubin 0.5 (0.2-1.3) mg/dL Direct Bilirubin 0.2 (0.0-0.4) mg/dL AST 30 (14-36) U/L ALT 20 (7-56) U/L Alkaline Phosphatase 79 (38-126) U/L C-Reactive Protein (0.0-9.9) mg/L Total Protein 7.8 (5.8-8.3) g/dL Albumin 3.7 (3.0-4.8) g/dL Globulin 4.1 gm/dL Albumin/Globulin Ratio 0.9 L (1.1-1.8) 07/29/18 07/28/18 Range/Units 06:00 07:40 WBC (4.5-11.0) 10^3/uL RBC (3.5-6.1) 10^6/uL Hgb (12.0-16.0) g/dL Hct (36.0-48.0) % MCV (80.0-105.0) fl MCH (25.0-35.0) pg MCHC (31.0-37.0) g/dl RDW (11.5-14.5) % Plt Count (120.0-450.0) 10^3/uL MPV (7.0-11.0) fl Gran % (50.0-68.0) % Lymph % (Auto) (22.0-35.0) % Pope % (Auto) (1.0-6.0) % Eos % (Auto) (1.5-5.0) % Baso % (Auto) (0.0-3.0) % Gran # (1.4-6.5) Lymph # (Auto) (1.2-3.4) Pope # (Auto) (0.1-0.6) Eos # (Auto) (0.0-0.7) Baso # (Auto) (0.0-2.0) K/mm3 ESR (0.0-20.0) mm/hr Sodium (132-148) mmol/L Potassium (3.6-5.0) mmol/L Chloride (98-107) mmol/L Carbon Dioxide (21-33) mmol/L Anion Gap (10-20) BUN (7-21) mg/dL Creatinine (0.7-1.2) mg/dl Est GFR ( Amer) Est GFR (Non-Af Amer) Random Glucose (70-110) mg/dL Calcium (8.4-10.5) mg/dL Phosphorus (2.5-4.5) mg/dL Magnesium (1.7-2.2) mg/dL Erythropoietin 104.1 H (2.6-18.5) mIU/mL Total Bilirubin (0.2-1.3) mg/dL Direct Bilirubin (0.0-0.4) mg/dL AST (14-36) U/L ALT (7-56) U/L Alkaline Phosphatase (38-126) U/L C-Reactive Protein 197.30 H (0.0-9.9) mg/L Total Protein (5.8-8.3) g/dL Albumin (3.0-4.8) g/dL Globulin gm/dL Albumin/Globulin Ratio (1.1-1.8) Laboratory Results - last 24 hr 07/28/18 07/29/18 07/30/18 07:40 06:00 05:30 WBC 4.7 RBC 3.98 Hgb 9.7 L Hct 32.2 L MCV 80.9 MCH 24.4 L MCHC 30.1 L RDW 16.9 H Plt Count 455 H MPV 10.2 Gran % 65.3 Lymph % (Auto) 24.0 Pope % (Auto) 8.1 H Eos % (Auto) 2.4 Baso % (Auto) 0.2 Gran # 3.05 Lymph # (Auto) 1.1 L Pope # (Auto) 0.4 Eos # (Auto) 0.1 Baso # (Auto) 0.01 ESR Sodium Potassium Chloride Carbon Dioxide Anion Gap BUN Creatinine Est GFR ( Amer) Est GFR (Non-Af Amer) Random Glucose Calcium Phosphorus Magnesium Erythropoietin 104.1 H Total Bilirubin Direct Bilirubin AST ALT Alkaline Phosphatase C-Reactive Protein 197.30 H Total Protein Albumin Globulin Albumin/Globulin Ratio 07/30/18 07/30/18 05:30 11:30 WBC RBC Hgb Hct MCV MCH MCHC RDW Plt Count MPV Gran % Lymph % (Auto) Pope % (Auto) Eos % (Auto) Baso % (Auto) Gran # Lymph # (Auto) Pope # (Auto) Eos # (Auto) Baso # (Auto) ESR 104 H Sodium 136 Potassium 4.1 Chloride 99 Carbon Dioxide 28 Anion Gap 13 BUN 10 Creatinine 0.9 Est GFR ( Amer) > 60 Est GFR (Non-Af Amer) > 60 Random Glucose 109 Calcium 7.4 L Phosphorus 5.0 H Magnesium 1.9 Erythropoietin Total Bilirubin 0.5 Direct Bilirubin 0.2 AST 30 ALT 20 Alkaline Phosphatase 79 C-Reactive Protein Total Protein 7.8 Albumin 3.7 Globulin 4.1 Albumin/Globulin Ratio 0.9 L Critical Care Progress Note - Nutrition Nutrition: Nutrition Category Date Time Status Consistent Carbohydrate [DIET] Diets 07/27/18 Breakfast Ordered Assessment/Plan - Assessment and Plan (Free Text) Assessment: 67 female with PMH of HTN, chronic anemia admitted to ICU for acute symptomatic anemia requiring blood transfusion. Was found to have mild pericaria effusion. Now asymptomatic, no signs of cardiac tamponade, hemodynamically stable and afebrile Plan: Neuro: -AAOx3, in NAD, no focal deficits. headache and dizziness resolved after PRBC transfusion -maintain normothermia Cardio -Echo: cardiomegaly with mild circumferential pericardial effusion, large hiatal hernia -no signs of cardiac tamponade, no JVD, no hypotension -continue lopressor 25 mg bid -continue lasix 20 mg bid -maintain MAP>65 mm Hg -cardiology following Dr Butler Resp: -O2 supp prn -xopenex q6 prn -maintain SaO2>92% -flu a/b negative Renal - maintain euvolemia GI -denied hematemesis, black stool(if off iron supplement), blood per rectum -EGD/colonscopy done few year ago: normal result -continue colace, miralax, protonix, zofran -FOBT negative -GI consulted Endo: -maintain euglycemia -h/o hypothyroidism, continue thyroxine -elevated phos and low calcium. phoslo started Heme -chronic iron deficiency anemia. on iron supplements -acute symptomatic anemia, s/p 2 units pRBCs and venofer -HGB improved from 8.4 to 9.7, patient is currently asymptomatic -continue monitoring H/H -hemoglobinopathy workup ordered by PCP -heme/onc following ID -afebrile, no leukocytosis -tylenol prn -urine, blood cultures: negative to date -elevated CRP, ESR Prophylaxis: - SCDs Dispo: Patient is hemodynamically stable, afebrile, no signs of cardiac tamponade. Transfer to remote tele Case reviewed and plan discussed with attending Dr Landen Isaac, DO PGY1 <My Schuster - Last Filed: 08/02/18 18:02> CCU Objective - Vital Signs / Intake & Output Intake and Output (Last 8hrs): Intake & Output 08/02/18 08/02/18 08/02/18 06:59 14:59 22:59 Intake Total 360 Balance 360 Weight 98.157 kg Intake: Oral 360 Other: # Voids Urine, Voided 2 # Bowel Movements 1 - Patient Studies Lab Studies: Microbiology Studies 07/28/18 10:27 Blood Culture - Final Blood NO GROWTH AFTER 5 DAYS Gram Stain - Final TEST NOT PERFORMED 07/28/18 10:15 Blood Culture - Final Blood NO GROWTH AFTER 5 DAYS Gram Stain - Final TEST NOT PERFORMED Lab Studies 08/02/18 08/02/18 07/30/18 Range/Units 06:00 06:00 11:30 WBC 4.4 L D (4.5-11.0) 10^3/uL RBC 3.82 (3.5-6.1) 10^6/uL Hgb 9.4 L (12.0-16.0) g/dL Hct 31.6 L (36.0-48.0) % MCV 82.7 (80.0-105.0) fl MCH 24.6 L (25.0-35.0) pg MCHC 29.7 L (31.0-37.0) g/dl RDW 17.8 H (11.5-14.5) % Plt Count 473 H (120.0-450.0) 10^3/uL MPV 9.9 (7.0-11.0) fl Gran % 61.1 (50.0-68.0) % Lymph % (Auto) 28.4 (22.0-35.0) % Pope % (Auto) 6.2 H (1.0-6.0) % Eos % (Auto) 4.1 (1.5-5.0) % Baso % (Auto) 0.2 (0.0-3.0) % Gran # 2.67 (1.4-6.5) Lymph # (Auto) 1.2 (1.2-3.4) Pope # (Auto) 0.3 (0.1-0.6) Eos # (Auto) 0.2 (0.0-0.7) Baso # (Auto) 0.01 (0.0-2.0) K/mm3 Sodium 137 (132-148) mmol/L Potassium 4.1 (3.6-5.0) mmol/L Chloride 99 (98-107) mmol/L Carbon Dioxide 33 (21-33) mmol/L Anion Gap 9 L (10-20) BUN 11 (7-21) mg/dL Creatinine 0.8 (0.7-1.2) mg/dl Est GFR ( Amer) > 60 Est GFR (Non-Af Amer) > 60 Random Glucose 94 (70-110) mg/dL Calcium 8.1 L (8.4-10.5) mg/dL Phosphorus 4.6 H (2.5-4.5) mg/dL Magnesium 2.0 (1.7-2.2) mg/dL Total Bilirubin 0.3 (0.2-1.3) mg/dL Direct Bilirubin 0.2 (0.0-0.4) mg/dL AST 42 H D (14-36) U/L ALT 23 (7-56) U/L Alkaline Phosphatase 74 (38-126) U/L Total Protein 7.2 (5.8-8.3) g/dL Albumin 3.3 (3.0-4.8) g/dL Globulin 3.9 gm/dL Albumin/Globulin Ratio 0.9 L (1.1-1.8) Proteinase 3 (PR3) <1.0 (<1.0) AI Myeloperoxidase Ab <1.0 (<1.0) AI Laboratory Results - last 24 hr 07/30/18 08/02/18 08/02/18 11:30 06:00 06:00 WBC 4.4 L D RBC 3.82 Hgb 9.4 L Hct 31.6 L MCV 82.7 MCH 24.6 L MCHC 29.7 L RDW 17.8 H Plt Count 473 H MPV 9.9 Gran % 61.1 Lymph % (Auto) 28.4 Pope % (Auto) 6.2 H Eos % (Auto) 4.1 Baso % (Auto) 0.2 Gran # 2.67 Lymph # (Auto) 1.2 Pope # (Auto) 0.3 Eos # (Auto) 0.2 Baso # (Auto) 0.01 Sodium 137 Potassium 4.1 Chloride 99 Carbon Dioxide 33 Anion Gap 9 L BUN 11 Creatinine 0.8 Est GFR ( Amer) > 60 Est GFR (Non-Af Amer) > 60 Random Glucose 94 Calcium 8.1 L Phosphorus 4.6 H Magnesium 2.0 Total Bilirubin 0.3 Direct Bilirubin 0.2 AST 42 H D ALT 23 Alkaline Phosphatase 74 Total Protein 7.2 Albumin 3.3 Globulin 3.9 Albumin/Globulin Ratio 0.9 L Proteinase 3 (PR3) <1.0 Myeloperoxidase Ab <1.0 Critical Care Progress Note - Nutrition Nutrition: Nutrition Category Date Time Status Consistent Carbohydrate [DIET] Diets 07/27/18 Breakfast Ordered Addendum Addendum: 07/30/18 18:01 ICU Attending Addendum Patient seen and examined on 07/30. Case reviewed on round with housestaff. Agree with resident note above with the following additions/exceptions 67 year old female with PMH of HTN presenting with fatigue secondary to iron deficiency anemia and pericardial effusion. HB stable now. Hemodynamically stable, not tachycardic and not hypotensive. No signs of tamponade at the moment however will observe until repeat echo . unclear cause of pericardial effusion possibly autoimmune? rheum workup pending Rest of care above My Schuster MD Pulmonary Critical Care Attending 08/02/18 18:01
--- NOTE | 2018-07-30 14:01 | CARD ---
APPROVED REPORT Date of service: 07/30/2018 EXAM: LIMITED Two-dimensional and M-mode echocardiogram. INDICATION F/U PERICARDIAL EFFUSION LEFT VENTRICLE There is mild concentric left ventricular hypertrophy. The left ventricular function is normal. The left ventricular ejection fraction is within the normal range. RIGHT VENTRICLE The right ventricle is normal size. ATRIA The left atrium is mildly dilated. The right atrium is mildly dilated. AORTIC VALVE The aortic valve is thickened but opens well. MITRAL VALVE The mitral valve is thickened but opens well. TRICUSPID VALVE The tricuspid valve leaflets are thickened , but open well. PERICARDIAL EFFUSION There is a moderate-large pericardial effusion. <Conclusion> Moderate pericardial effusion Borderline diastolic compression of RA LVH wtih good LV function Dilated LA and RA
--- NOTE | 2018-07-30 14:14 | PN ---
DATE: 07/30/2018 SUBJECTIVE: The patient is ambulating without symptoms. PHYSICAL EXAMINATION: VITAL SIGNS: Blood pressure is 139/65, heart rates in the 80s. NECK: Negative JVD. LUNGS: Without rales. HEART: S1, S2. EXTREMITIES: Without edema. LABORATORY DATA: Hemoglobin is 9.7. Chemistries: BUN and creatinine unremarkable. Repeat echocardiogram reveals no change in the pericardial effusion and there is a hint of diastolic compression of the right atrium. IMPRESSION: 1. Pericardial effusion. 2. No evidence for hemodynamic compromise. 3. Anemia. 4. Hypertension. PLAN: Given these findings, her sed rate is markedly elevated. I have discussed with the patient about the possibility of pericardial biopsy with pericardial fluid drainage. Along with her family, they are very resistant to any such procedure. We will continue to monitor. We will re-discuss with them in the morning about the possibility of a pericardial biopsy and pericardial drainage. Mookie Butler MD
[2018-07-30 16:00] LABS: HEMOGLOBIN A 97.1 Percent (>96.0); HEMOGLOBIN A2 1.9 Percent (1.8-3.5)
--- NOTE | 2018-07-30 16:59 | CP.PCM.APN ---
Subjective - Date & Time of Evaluation Date of Evaluation: 07/30/18 Time of Evaluation: 11:30 - Subjective Subjective: 7 year old female, with past medical history of hypertension and hypothyroidism Iron deficient anemia,, presents to the ED complaining of generalized weakness and chills since past week. Patient reports recent completion of Iron pills p rescribed by her PMD secondary to abnormal blood results. Patient received 1 unit of PRBCs in the outpatient clinic, for initial Hgb 6.5. After transfusion patient developed fever 102 and repeat Hgb in ED was 8.3, pt admitted for symptomatic anemia. Pt. seen and examined. States got Out of bed for first time with physical therapis today, states dyspnea is a little better, was able to tolerate full PT session without dyspnea. Denied chest pain, palpitations, dizziness, denied overt signs of bleeding. Review of Systems - Constitutional Constitutional: As Per HPI - EENT Eyes: As Per HPI Ears: As Per HPI Nose/Mouth/Throat: As Per HPI - Breasts Breasts: As Per HPI - Cardiovascular Cardiovascular: As Per HPI - Respiratory Respiratory: As Per HPI - Gastrointestinal Gastrointestinal: As Per HPI - Genitourinary Genitourinary: As Per HPI - Musculoskeletal Musculoskeletal: As Per HPI - Neurological Neurological: As Per HPI - Endocrine Endocrine: As Per HPI - Hematologic/Lymphatic Hematologic: As Per HPI Objective - Vital Signs/Intake and Output Vital Signs (last 24 hours): Temp Pulse Resp BP Pulse Ox 99.2 F 83 30 H 139/65 99 07/29/18 20:00 07/30/18 10:11 07/29/18 17:00 07/30/18 10:11 07/29/18 17:00 Intake and Output: 07/30/18 07/30/18 06:59 18:59 Intake Total 400 Output Total 0 Balance 400 - Medications Medications: Current Medications Acetaminophen (Tylenol 325mg Tab) 650 mg PO Q6 PRN PRN Reason: TEMP>=99.5F Last Admin: 07/29/18 14:10 Dose: 650 mg Calcium Acetate (Phoslo) 1,334 mg PO WM [facility] Last Admin: 07/30/18 15:04 Dose: 1,334 mg Docusate Sodium (Colace) 100 mg PO TID WANDER Last Admin: 07/30/18 15:04 Dose: 100 mg Furosemide (Lasix) 20 mg IVP Q12 WANDER Last Admin: 12/14/18 09:23 Dose: 20 mg Iron Sucrose 200 mg/ Sodium (Chloride) 110 mls @ 110 mls/hr IVPB DAILY [facility] [place] Stop: 07/31/18 10:59 Last Admin: 07/30/18 09:23 Dose: 110 mls/hr Levalbuterol HCl (Xopenex) 0.63 mg IH [id number] PRN PRN Reason: Shortness of Breath Levothyroxine Sodium (Synthroid) 150 mcg PO DAILY [facility] [place] Last Admin: 07/30/18 09:23 Dose: 150 mcg Metoprolol Tartrate (Lopressor) 25 mg PO Q8H [facility] [place] Last Admin: 07/30/18 10:11 Dose: 25 mg Ondansetron HCl (Zofran Inj) 4 mg IVP Q4H PRN PRN Reason: Nausea/Vomiting Pantoprazole Sodium (Protonix Ec Tab) 40 mg PO 0600 [facility] [place] Last Admin: 07/30/18 05:04 Dose: 40 mg Polyethylene Glycol (Miralax) 17 gm PO BID [facility] [place] Last Admin: 07/30/18 09:26 Dose: Not Given - Labs Labs: 07/30/18 05:30 07/30/18 05:30 PT 14.6 SECONDS (9.4-12.5) H 07/27/18 20:53 INR 1.27 07/27/18 20:53 APTT 27.7 Seconds (25.1-36.5) 07/27/18 20:53 - Constitutional Appears: Well - Head Exam Head Exam: NORMAL INSPECTION - Eye Exam Eye Exam: Normal appearance - ENT Exam ENT Exam: Mucous Membranes Moist - Neck Exam Neck Exam: Full ROM - Respiratory Exam Respiratory Exam: Clear to Ausculation Bilateral - Cardiovascular Exam Cardiovascular Exam: +S1, +S2, Murmur - GI/Abdominal Exam GI & Abdominal Exam: Soft, Normal Bowel Sounds - Rectal Exam Rectal Exam: Deferred - Extremities Exam Extremities Exam: Normal Inspection - Neurological Exam Neurological Exam: Alert, Awake - Skin Skin Exam: Normal Color, Warm Assessment and Plan - Assessment and Plan (Free Text) Assessment: 1. Symptomatic Anemia, s/p 2 units PRBCS, Hgb improved. Continue to follow and trend h/h. 2. Large pericardial effusion with possible atrial diastolic compression . Iv Diuresis as per cardiology, check repeat echo today as per food safety coordinator, monitor in ICU as per food safety coordinator. ESR elevated at 104, per cardiology advises pericardial biopsy, discussed with patient and family, reluctant to agree at this time, will reasses and discuss again in the am. Dyspnea with CHF-continue diuretics per food safety coordinator. 3. Iron Deficient Anemia To receive total 5 bags of IV Venofer. 4. Fever most likely secondary to blood transfusion continue to trend temp. Further recommendation pending results of workup and patient's clinical status. Will continue to discuss with consultants and follow clinical status and monitor closely. Pt has evaluated patient, recommended Home with services, would anticipate DC home once cardiac workup is complete, and after cleared by food safety coordinator.
--- NOTE | 2018-07-30 22:07 | PN ---
DATE: 07/30/2018 SUBJECTIVE: The patient is seen in ICU bed 6. The patient is seen lying in the bed, in the process of getting echocardiogram done. The patient denies any chest pain or shortness of breath. Today, the patient states that her shortness of breath has improved. Overnight nurse's notes were reviewed. PHYSICAL EXAMINATION: VITAL SIGNS: T-max in the last 24 hours 100.2, down to 99.2. Telemetry shows heart rate 88, 93, 82; blood pressures 164/94, 155/82, 142/71, 149/72, 160/86, 139/65; respiration 21. O2 sat is 99% to 100%. HEENT: Head: Normocephalic and atraumatic. HEENT examination shows pinkish pale conjunctivae. Anicteric sclerae. No oropharyngeal lesion. No neck rigidity. CHEST: Kyphosis. LUNGS: Show no audible crackle, rales or wheezing. Decreased breath sound at the bases, left more than night. CARDIOVASCULAR: S1 and S2. Regular rhythm. Questionable soft systolic murmur in left sternal border, right second intercostal space, left second intercostal space. ABDOMEN: Soft, protuberant. Positive bowel sounds. No palpable hepatosplenomegaly. GENITALIA: Female. RECTAL: Deferred. EXTREMITIES: Show no pitting edema, no calf tenderness, no Homans' sign. MUSCULOSKELETAL: Shows a body mass index of 37. NEUROLOGIC: The patient is alert, awake, oriented x3. Cranial nerves II-XII limited. Gait examination is not tested. VASCULAR: Palpable pulses. DIAGNOSTIC DATA: On 07/30/2018, WBC 4.7, hemoglobin and hematocrit 9.7 and 32.2, platelet 455, ESR is still 104. Sodium 136, potassium 4.1, chloride 99, CO2 of 28, anion gap 13, BUN 10, creatinine 0.9, GFR greater than 60, glucose 109, calcium 7.4, phosphorus 5. LFTs are within normal limit. C-reactive protein is 197. A/G ratio is reversed at 0.9. All sets of troponin are negative. Stool occult blood is negative. Hepatitis A, B, C serologies, HIV-1 and HIV-2 antigen antibody fourth generation negative. Influenza titers negative. MRSA nondetected. Urine blood cultures negative. The patient received 2 units of PRBC. Repeat echocardiogram done as per the cardiology recommendation, which shows mild concentric left ventricular hypertrophy, mildly dilated left and right atrium, twihklnt-xo-disuz pericardial effusion with borderline diastolic right atrial compression, dilated left and right atrium. IMPRESSION AND PLAN: 1. Severe symptomatic anemia with symptoms of weakness, fatigue and shortness of breath and dyspnea on exertion. 2. Raeiugkk-ee-ogqtd pericardial effusion with right atrial diastolic compression. 3. Left ventricular hypertrophy. 4. Mildly dilated left and right atrium. 5. Mitral valve thickening and tricuspid valve thickening and aortic valve thickening. 6. Thickened aortic, mitral and tricuspid valves. 7. Large hiatal hernia. 8. Morbid obesity. 9. History of transfusion-dependent anemia. 10. Left ventricular ejection fraction of 63%. 11. Pulmonary hypertension with right ventricular systolic pressure of 46 mmHg. 12. Concentric left ventricular hypertrophy. 13. Grade I abnormal relaxation pattern. 14. Moderately dilated left atrium and mildly dilated right atrium. 15. Mild mitral regurgitation. 16. Moderate pulmonary hypertension with mild tricuspid regurgitation. 17. Trace pulmonic regurgitation. 18. Markedly elevated erythrocyte sedimentation rate of greater than 100. 19. Status post high-grade fever, etiology unclear. 20. Transient uncontrolled hypertension. 21. Leukopenia. 22. Anemia. 23. Possible alpha thalassemia. 24. Hypocalcemia. 25. Hyperphosphatemia. 26. Reversed albumin/globulin ratio. 27. Possible iron deficiency. 28. Trace proteinuria. 29. Bacteriuria. 30. Status post packed red blood cell transfusion x2. PLAN: At this time, the patient was seen and evaluated by Cardiology, Dr. Butler. Cardiology has met with the patient and the patient's family, and the patient was offered the option of pericardial biopsy with pericardial fluid drainage. The patient and the family were resistant about the above procedure. According to the Cardiology, Cardiology will re-discuss the above option with the patient and the family in tomorrow. In the interim, the patient is to be maintained and prepared in ICU. Next, the patient will be ordered repeat CBC, CMP labs in the morning. Current consultations: Cardiology, Gastroenterology, Hematology. Current medications: Colace 100 mg three times a day, Venofer 200 mg IV daily, Lasix 20 mg IV every 12 hours, Lopressor 25 mg every 8 hours, MiraLax 17 g twice a day, Mucinex 600 mg b.i.d., PhosLo 1334 mg with meals, Protonix 40 mg daily, Synthroid 150 mcg daily, Tylenol p.r.n., Xopenex nebulizer every 6 hours, Zofran 4 mg IV every 4 hours p.r.n. SCDs, FELIX marshall, out of bed, occupational therapy, physical therapy ordered. The patient is updated about her condition, diagnoses, treatment plan, treatment options. All details were discussed with the patient at length, and all questions concerned were answered to the patient's satisfaction. Time spent is more than 35 minutes. Dictated and electronically signed, not read. Alexander Moreland MD
[2018-07-31 06:28] LABS: ALB/GLOB RATIO 0.9 (1.1-1.8); ALBUMIN 3.6 g/dL (3.0-4.8); ALT/SGPT 20 U/L (7-56); AST/SGOT 40 U/L (14-36); BILIRUBIN,DIRECT 0.3 mg/dL (0.0-0.4); BLOOD UREA NITROGEN 10 mg/dL (7-21); CALCIUM 7.7 mg/dL (8.4-10.5); GFR NON-AFRICAN AMERICAN > 60
[2018-07-31 06:33] LABS: BASO # 0.02 K/mm3 (0.0-2.0); BASO % 0.5 % (0.0-3.0); EOS # 0.1 (0.0-0.7); EOS % 3.2 % (1.5-5.0); GRAN # 2.79 (1.4-6.5); GRAN % 62.7 % (50.0-68.0); HEMOGLOBIN 9.6 g/dL (12.0-16.0); LYMPH % 23.2 % (22.0-35.0); MEAN CELL VOLUME 81.3 fl (80.0-105.0); MEAN CORPUSCULAR HEMOGLOBIN 24.6 pg (25.0-35.0); MEAN CORPUSCULAR HGB CONC 30.3 g/dl (31.0-37.0); MEAN PLATELET VOLUME 10.3 fl (7.0-11.0); MONO # 0.5 (0.1-0.6); MONO % 10.4 % (1.0-6.0); RBC 3.9 10^6/uL (3.5-6.1); RED CELL DISTRIBUTION WIDTH 17.3 % (11.5-14.5); WHITE BLOOD COUNT 4.4 10^3/uL (4.5-11.0)
[2018-07-31] MEDS: Pantoprazole 40 mg EC Tab PO SCH (06:57)
--- NOTE | 2018-07-31 08:51 | PN ---
DATE: 07/31/2018 SUBJECTIVE: The patient is still in ICU bed 6. The patient's overnight nurse's notes were reviewed. There was no adverse events noted and documented by the nurses. The patient did not have any adverse events reported also. The patient stayed comfortable without any adverse event. The patient denies any chest pain. Denies any shortness of breath at rest. The patient has not been active, so it is difficult to assess dyspnea on exertion. The patient fatigue and weakness is also difficult to assess that since the patient has been bed rest in ICU. OBJECTIVE: VITAL SIGNS: T-max, the last documented temperature is more than 24 hours ago which is 99.2. Telemetry shows normal sinus rhythm, heart rate 78-80, respiration 17-19, blood pressure 128/66, O2 sat 100%. HEENT: Head is normocephalic, atraumatic. Eyes; shows pinkish pale conjunctivae. Anicteric sclerae. No oropharyngeal lesion. NECK: No neck rigidity. CHEST: Symmetrical. LUNGS: Shows decreased breath sound at the bases, left more than the right. CARDIOVASCULAR: S1, S2, regular rhythm. Questionable soft systolic murmur left sternal border, right second intercostal space. ABDOMEN: Soft, obese, protuberant. Positive bowel sound. No palpable hepatosplenomegaly. GENITALIA: Female. RECTAL: Deferred.\ EXTREMITIES: Shows no pitting edema, no calf tenderness, no Homans' sign. NEUROLOGIC: The patient is alert, awake, responsive, she is able to move upper and lower extremity without assistance. MUSCULOSKELETAL: Shows an elevated body mass index. NEUROLOGIC: The patient is alert, awake, responsive, is able to move upper and lower extremity without assistance. Gait examination is not tested. DIAGNOSTICS: On 07/31/2018; WBC 4.4, hemoglobin/hematocrit 9.6/31.7, platelet 468. Sodium 136, potassium 4.0, chloride 98, CO2 of 32, BUN 10, creatinine 0.8, glucose 102, calcium 7.7, phosphorus 4.9, magnesium 1.9, AST 40. C-reactive protein 197.30. Rheumatoid factor is positive, anti-CCP antibody is pending. CARL is pending, pending. Repeat echocardiogram report reviewed. IMPRESSION: 1. Severe symptomatic anemia with symptoms of weakness, fatigue, shortness of breath, and dyspnea on exertion. 2. Status post packed red blood cell transfusion x2. 3. There is moderate to large pericardial effusion with right atrial diastolic compression and collapse. 4. Hypocalcemia. 5. Hyperphosphatemia. 6. Reversed albumin/globulin ratio. 7. Leukopenia. 8. Questionable transaminitis. 9. Elevated erythrocyte sedimentation rate of greater than 100. 10. Elevated C-reactive protein of greater than 197. 11. Positive rheumatoid factor. 12. History of thyroidectomy, history of right parotid tumor, history of ventral herniorrhaphy, history of hypertension, history of hypothyroidism. 13. Obesity with elevated body mass index. 14. Large hiatal hernia. 15. Possible iron-deficiency anemia. PLAN: At this time, the patient has been seen by Cardiology, and Cardiology has recommended surgical intervention for pericardial effusion treatment, which the patient and the patient's family has not decided about. At present, the patient was seen by cardiology as the patient has been ordered to be transferred out of the ICU. The patient is to be continued on Lopressor 25 mg every 8 hours, Lasix 20 IV every 12 hours, Protonix 40 mg daily. The patient is to be ordered non-pharmacological deep venous thrombosis prophylaxis. The patient will be ordered out of bed to chair. The patient has been ordered serial labs. Telemetry transfer ordered. Repeat serial labs ordered.. At present, the patient's further management will be dependent upon the patient's clinical condition, hemodynamic status and as per the patient response to therapeutic intervention, as per diagnostic test results and as per recommendation by Cardiology, Hematology/Oncology, Gastroenterology. Plan at this time, we will await for the pending diagnostic tests. The patient may require outpatient Rheumatology evaluation and followup. The patient has been updated about her condition, diagnosis, diagnostic test results, recommendation by all physician involved in the care of the patient, which the patient acknowledged and understand. Dictated and electronically signed, not read. Alexander Moreland MD
[2018-07-31] MEDS: Levothyroxine 150 MCG TAB PO SCH (10:57)
[2018-07-31] MEDS: POLYETHYLENE GLYCOL 3350 17 GM/Dose PACKET PO SCH ×2 (10:58→17:49)
--- NOTE | 2018-07-31 15:18 | CON ---
CARDIOLOGY CONSULTATION DATE: 07/31/2018 SUBJECTIVE: The patient is complaining of fatigue. No dyspnea. PHYSICAL EXAMINATION: VITAL SIGNS: Blood pressure 134/92 and heart rate is in the 80s. NECK: Negative JVD. LUNGS: Without rales. HEART: S1 and S2. EXTREMITIES: Without edema. LABORATORY DATA: Hemoglobin is 9.6. Chemistry: BUN and creatinine are unremarkable. IMPRESSION: 1. Pericardiac effusion with questionable early diastolic compression of the right atrium. 2. No hemodynamic significance of the pericardial effusion so far. 3. Anemia. 4. Hypertension. Given these findings, the patient still not decided on whether she is agreeable to pericardial biopsy and pericardial effusion drainage. Mookie Butler MD
--- NOTE | 2018-07-31 21:07 | CP.PCM.PN ---
Subjective - Date & Time of Evaluation Date of Evaluation: 07/30/18 Time of Evaluation: 20:00 - Subjective Subjective: Feeling better, participating with PT Objective - Vital Signs/Intake and Output Vital Signs (last 24 hours): Temp Pulse Resp BP Pulse Ox 99.2 F 86 19 137/77 100 07/29/18 20:00 07/31/18 19:05 07/31/18 10:50 07/31/18 19:05 07/30/18 10:00 Intake and Output: 07/31/18 08/01/18 18:59 06:59 Intake Total 800 Output Total 950 Balance -150 - Medications Medications: Current Medications Acetaminophen (Tylenol 325mg Tab) 650 mg PO Q6 PRN PRN Reason: TEMP>=99.5F Last Admin: 07/30/18 22:06 Dose: 650 mg Calcium Acetate (Phoslo) 1,334 mg PO [facility] Last Admin: 07/31/18 16:46 Dose: 1,334 mg Docusate Sodium (Colace) 100 mg PO TID [facility] Last Admin: 07/31/18 17:49 Dose: Not Given Furosemide (Lasix) 20 mg IVP Q12 [facility] Last Admin: 07/31/18 10:57 Dose: 20 mg Levalbuterol HCl (Xopenex) 0.63 mg IH [id number] PRN PRN Reason: Shortness of Breath Levothyroxine Sodium (Synthroid) 150 mcg PO DAILY [facility] Last Admin: 07/31/18 10:57 Dose: 150 mcg Metoprolol Tartrate (Lopressor) 25 mg PO Q8H [facility] Last Admin: 07/31/18 19:05 Dose: 25 mg Ondansetron HCl (Zofran Inj) 4 mg IVP Q4H PRN PRN Reason: Nausea/Vomiting Pantoprazole Sodium (Protonix Ec Tab) 40 mg PO 0600 [facility] Last Admin: 07/31/18 06:57 Dose: 40 mg Polyethylene Glycol (Miralax) 17 gm PO BID [facility] Last Admin: 07/31/18 17:49 Dose: Not Given - Labs Labs: 07/31/18 05:00 07/31/18 05:00 PT 14.6 SECONDS (9.4-12.5) H 07/27/18 20:53 INR 1.27 07/27/18 20:53 APTT 27.7 Seconds (25.1-36.5) 07/27/18 20:53 - Head Exam Head Exam: ATRAUMATIC - Eye Exam Eye Exam: Normal appearance - ENT Exam ENT Exam: Mucous Membranes Dry - Respiratory Exam Respiratory Exam: NORMAL BREATHING PATTERN - Cardiovascular Exam Cardiovascular Exam: +S1, +S2 - GI/Abdominal Exam GI & Abdominal Exam: Normal Bowel Sounds Assessment and Plan (1) Anemia Assessment & Plan: iron deficiency s/p PRBC transfusion on Venofer GI w/u Status: Acute
--- NOTE | 2018-07-31 21:08 | CP.PCM.PN ---
Subjective - Date & Time of Evaluation Date of Evaluation: 07/31/18 Time of Evaluation: 18:00 - Subjective Subjective: No complaints, considering pericardial biopsy/drain. Objective - Vital Signs/Intake and Output Vital Signs (last 24 hours): Temp Pulse Resp BP Pulse Ox 99.2 F 86 19 137/77 100 07/29/18 20:00 07/31/18 19:05 07/31/18 10:50 07/31/18 19:05 07/30/18 10:00 Intake and Output: 07/31/18 08/01/18 18:59 06:59 Intake Total 800 Output Total 950 Balance -150 - Medications Medications: Current Medications Acetaminophen (Tylenol 325mg Tab) 650 mg PO Q6 PRN PRN Reason: TEMP>=99.5F Last Admin: 07/30/18 22:06 Dose: 650 mg Calcium Acetate (Phoslo) 1,334 mg PO [facility] Last Admin: 07/31/18 16:46 Dose: 1,334 mg Docusate Sodium (Colace) 100 mg PO TID [facility] Last Admin: 07/31/18 17:49 Dose: Not Given Furosemide (Lasix) 20 mg IVP Q12 [facility] Last Admin: 07/31/18 10:57 Dose: 20 mg Levalbuterol HCl (Xopenex) 0.63 mg IH [id number] PRN PRN Reason: Shortness of Breath Levothyroxine Sodium (Synthroid) 150 mcg PO DAILY [facility] Last Admin: 07/31/18 10:57 Dose: 150 mcg Metoprolol Tartrate (Lopressor) 25 mg PO Q8H [facility] Last Admin: 07/31/18 19:05 Dose: 25 mg Ondansetron HCl (Zofran Inj) 4 mg IVP Q4H PRN PRN Reason: Nausea/Vomiting Pantoprazole Sodium (Protonix Ec Tab) 40 mg PO 0600 [facility] Last Admin: 07/31/18 06:57 Dose: 40 mg Polyethylene Glycol (Miralax) 17 gm PO BID [facility] Last Admin: 07/31/18 17:49 Dose: Not Given - Labs Labs: 07/31/18 05:00 07/31/18 05:00 PT 14.6 SECONDS (9.4-12.5) H 07/27/18 20:53 INR 1.27 07/27/18 20:53 APTT 27.7 Seconds (25.1-36.5) 07/27/18 20:53 - Head Exam Head Exam: ATRAUMATIC - Eye Exam Eye Exam: Normal appearance - ENT Exam ENT Exam: Mucous Membranes Dry - Respiratory Exam Respiratory Exam: NORMAL BREATHING PATTERN - Cardiovascular Exam Cardiovascular Exam: +S1, +S2 - GI/Abdominal Exam GI & Abdominal Exam: Normal Bowel Sounds Assessment and Plan (1) Anemia Assessment & Plan: iron deficiency s/p PRBC transfusion IV venofer GI w/u Status: Acute
[2018-08-01] MEDS: Pantoprazole 40 mg EC Tab PO SCH (05:32)
[2018-08-01 07:28] LABS: BASO # 0.01 K/mm3 (0.0-2.0); BASO % 0.2 % (0.0-3.0); EOS # 0.2 (0.0-0.7); EOS % 3.8 % (1.5-5.0); GRAN # 3.67 (1.4-6.5); GRAN % 63.1 % (50.0-68.0); HEMOGLOBIN 9.7 g/dL (12.0-16.0); LYMPH # 1.3 (1.2-3.4); LYMPH % 23.1 % (22.0-35.0); MEAN CELL VOLUME 82.1 fl (80.0-105.0); MEAN CORPUSCULAR HEMOGLOBIN 24.8 pg (25.0-35.0); MEAN CORPUSCULAR HGB CONC 30.2 g/dl (31.0-37.0); MONO # 0.6 (0.1-0.6); MONO % 9.8 % (1.0-6.0); RBC 3.91 10^6/uL (3.5-6.1); WHITE BLOOD COUNT 5.8 10^3/uL (4.5-11.0)
[2018-08-01 08:01] LABS: ALB/GLOB RATIO 0.9 (1.1-1.8); ALBUMIN 3.4 g/dL (3.0-4.8); ALT/SGPT 23 U/L (7-56); AST/SGOT 34 U/L (14-36); BILIRUBIN,DIRECT 0.3 mg/dL (0.0-0.4); BLOOD UREA NITROGEN 12 mg/dL (7-21); GFR NON-AFRICAN AMERICAN > 60
--- NOTE | 2018-08-01 08:57 | CP.PCM.PN ---
Subjective - Date & Time of Evaluation Date of Evaluation: 08/01/18 Time of Evaluation: 08:30 - Subjective Subjective: (covering for Dr. Moreland) Patient is seen this morning. She denies chest pain or shortness of breath. Objective - Vital Signs/Intake and Output Vital Signs (last 24 hours): Temp Pulse Resp BP Pulse Ox 98.4 F 77 22 139/80 97 08/01/18 06:00 08/01/18 06:00 08/01/18 06:00 08/01/18 02:06 08/01/18 06:00 Intake and Output: 08/01/18 08/01/18 06:59 18:59 Intake Total 480 Balance 480 - Medications Medications: Current Medications Acetaminophen (Tylenol 325mg Tab) 650 mg PO Q6 PRN PRN Reason: TEMP>=99.5F Last Admin: 07/30/18 22:06 Dose: 650 mg Calcium Acetate (Phoslo) 1,334 mg PO [facility] Last Admin: 08/01/18 08:42 Dose: 1,334 mg Docusate Sodium (Colace) 100 mg PO TID [facility] Last Admin: 07/31/18 17:49 Dose: Not Given Furosemide (Lasix) 20 mg IVP Q12 [facility] Last Admin: 07/31/18 22:46 Dose: 20 mg Levalbuterol HCl (Xopenex) 0.63 mg IH [id number] PRN PRN Reason: Shortness of Breath Levothyroxine Sodium (Synthroid) 150 mcg PO DAILY [facility] Last Admin: 07/31/18 10:57 Dose: 150 mcg Metoprolol Tartrate (Lopressor) 25 mg PO Q8H [facility] Last Admin: 08/01/18 02:06 Dose: 25 mg Ondansetron HCl (Zofran Inj) 4 mg IVP Q4H PRN PRN Reason: Nausea/Vomiting Pantoprazole Sodium (Protonix Ec Tab) 40 mg PO 0600 [facility] Last Admin: 08/01/18 05:32 Dose: 40 mg Polyethylene Glycol (Miralax) 17 gm PO BID [facility] Last Admin: 07/31/18 17:49 Dose: Not Given - Labs Labs: 08/01/18 06:30 08/01/18 06:30 PT 14.6 SECONDS (9.4-12.5) H 07/27/18 20:53 INR 1.27 07/27/18 20:53 APTT 27.7 Seconds (25.1-36.5) 07/27/18 20:53 - Constitutional Appears: No Acute Distress - Head Exam Head Exam: ATRAUMATIC, NORMOCEPHALIC - Respiratory Exam Respiratory Exam: Clear to Ausculation Bilateral, NORMAL BREATHING PATTERN - Cardiovascular Exam Cardiovascular Exam: REGULAR RHYTHM, +S1, +S2 - GI/Abdominal Exam GI & Abdominal Exam: Soft, Normal Bowel Sounds. absent: Tenderness - Neurological Exam Neurological Exam: Alert, Awake, CN II-XII Intact, Oriented x3 Assessment and Plan - Assessment and Plan (Free Text) Assessment: Symptomatic anemia Large pericardial effusion with borderline diastolic compression of RA Plan: Patient has large pericardial effusion. Cardiology is on the case and patient is currently on IV Lasix. Patient considering biopsy so that cause of effusion can be determined. Hemoglobin is stable at 9.7. She is status post 2 units packed red blood cells. continue IV venofer infusions.
[2018-08-01] MEDS: POLYETHYLENE GLYCOL 3350 17 GM/Dose PACKET PO SCH ×2 (10:09→17:11)
[2018-08-01] MEDS: Levothyroxine 150 MCG TAB PO SCH (10:09)
[2018-08-02] MEDS: Pantoprazole 40 mg EC Tab PO SCH (05:31)
[2018-08-02 06:40] LABS: BASO # 0.01 K/mm3 (0.0-2.0); BASO % 0.2 % (0.0-3.0); EOS # 0.2 (0.0-0.7); EOS % 4.1 % (1.5-5.0); GRAN # 2.67 (1.4-6.5); GRAN % 61.1 % (50.0-68.0); HEMOGLOBIN 9.4 g/dL (12.0-16.0); LYMPH # 1.2 (1.2-3.4); LYMPH % 28.4 % (22.0-35.0); MEAN CELL VOLUME 82.7 fl (80.0-105.0); MEAN CORPUSCULAR HEMOGLOBIN 24.6 pg (25.0-35.0); MEAN CORPUSCULAR HGB CONC 29.7 g/dl (31.0-37.0); MEAN PLATELET VOLUME 9.9 fl (7.0-11.0); MONO # 0.3 (0.1-0.6); MONO % 6.2 % (1.0-6.0); RBC 3.82 10^6/uL (3.5-6.1); RED CELL DISTRIBUTION WIDTH 17.8 % (11.5-14.5); WHITE BLOOD COUNT 4.4 10^3/uL (4.5-11.0)
[2018-08-02 06:57] VITALS: O2SAT 98
[2018-08-02 07:18] LABS: ALB/GLOB RATIO 0.9 (1.1-1.8); ALBUMIN 3.3 g/dL (3.0-4.8); ALT/SGPT 23 U/L (7-56); AST/SGOT 42 U/L (14-36); BILIRUBIN,DIRECT 0.2 mg/dL (0.0-0.4); BLOOD UREA NITROGEN 11 mg/dL (7-21); CALCIUM 8.1 mg/dL (8.4-10.5); GFR NON-AFRICAN AMERICAN > 60
--- NOTE | 2018-08-02 09:34 | DS ---
HISTORY OF PRESENT ILLNESS: The patient is now seen in room 261, bed 2. The patient is seen lying in the bed. Patient is comfortable. The patient states that her shortness of breath has significantly improved since the day of admission. The patient denies any chest pain. The patient denies any nausea, vomiting, diarrhea or constipation. Denies any hemoptysis, hematemesis, melena, denies any hematochezia. PHYSICAL EXAMINATION: VITAL SIGNS: T-max 98.3. Telemetry shows sinus rhythm, heart rate 74, 76 and 78, blood pressure 145/81, 127/65, 148/81, 146/81, 135/76, respiration 20, O2 sat 98%. GENERAL: The patient is seen. The patient examined in the in the room 261, bed 2. HEENT: Head examination normocephalic, atraumatic. HEENT examination shows pinkish pale conjunctivae, anicteric sclerae. No oropharyngeal lesion. No neck rigidity. CHEST: Kyphosis. LUNGS: Shows decreased breath sound at the bases. No audible crackle, rales or wheezing. CARDIOVASCULAR: Shows S1, S2, regular rhythm. Questionable soft systolic murmur left sternal border, right second intercostal space, left second intercostal space. ABDOMEN: Soft, protuberant. Positive bowel sounds. GENITALIA: Female. RECTAL: Deferred. EXTREMITIES: Shows no pitting, no calf numbness, no Homans' sign. MUSCULOSKELETAL: Shows a body mass index of 35. NEUROLOGIC: The patient is alert, awake, oriented x3, is able to move upper and lower extremities without assistance. Gait examination is not tested. VASCULAR: Palpable pulses. DIAGNOSTICS: On 08/02/2018, WBC of 4.4, hemoglobin/hematocrit 9.4, 31.6, platelet 473. Sodium 137, potassium 4.1, chloride 99, CO2 33, anion gap 9, BUN 11, creatinine 0.8, GFR greater than 60, glucose 94, calcium 8.1, phosphorus 4.6, magnesium 2.0, AST 42. Rest of the LFTs are within normal limit. Stool occult blood negative. Rheumatoid arthritis. INTERPRETATION: Positive. CARL negative, ANCA reports pending. Hepatitis A, B, C HIV-1 and 2 antigen antibody fourth generation negative. Blood, urine and MRSA cultures negative. The patient received 2 units of PRBC. FINAL IMPRESSION, PLAN AND DISCHARGE DIAGNOSES: 1. Severe symptomatic anemia with symptoms of shortness of breath, fatigue, weakness. 2 Status post packed red blood cell transfusion x2. 3. Sgbsxxlf-lx-bindk pericardial effusion with right atrial diastolic compression and collapse. 4. Elevated erythrocyte sedimentation rate of greater than 100. 5. Iron-deficiency normocytic anemia. 6. Status post IV Venofer treatment. 7. Obesity with elevated body mass index of 35. 8. Hypertension. 9 Tachycardia. 10. Status post high-grade fever. 11. Elevated erythrocyte sedimentation rate of 104. 12. Possible alpha thalassemia. 13. Leukopenia. 14. Iron-deficiency anemia. 15. Hyperphosphatemia. 16. Elevated C-reactive protein of greater than 197. 17. Trace proteinuria. 18. Rheumatoid arthritis interpretation positive. 19. Status post packed red blood cell transfusion x2. 20. Cardiomegaly with nyuulwot-cz-lxyze pericardial effusion. 21. Large hiatal hernia. 22. Left ventricular ejection fraction of 63%. 23. Concentric left ventricular hypertrophy. 24. Grade 1 abnormal relaxation pattern. 25. Moderately dilated left atrium and mildly dilated right atrium. 26. Mild mitral regurgitation. 27. Rjcg-gy-bjnqkpya pulmonary hypertension with mild tricuspid regurgitation. 28. Trace pulmonic regurgitation. 29. Wifyddsd-as-fuzda circumferential pericardial effusion with evidence of diastolic compression of the right atrial pericardial effusion. 30. Puotyfwf-vb-lkanh pericardial effusion. 31. Deconditioning. 32. History of hypothyroidism. 33. History of thyroidectomy. 34. History of ventral herniorrhaphy. 35. At present, the patient has not decided about pericardial biopsy and pericardial effusion. TREATMENT: Surgical treatment and the patient wished to be treated with medication. The patient declined surgical opinion and options. PLAN: At this time, the patient will be considered for discharge to TCU if accepted. If the patient not accepted to TCU, the patient may be discharged home. Discharge home after cleared by Cardiology. If the patient discharged home, follow up with Dr. Moreland within 1 week. Discharge medications as per updated ambulatory orders plus new scripts. If the patient is not accepted to TCU, the patient will be discharged home after cleared by Cardiology. DISCHARGE MEDICATIONS: Carbamazepine, Carbatrol 300 mg daily, Colace 100 mg three times a day, Lasix 40 mg daily, Synthroid 150 mcg daily, Lopressor 25 mg every 8 hours, Protonix 40 mg daily. This is the revised home medications which the patient has been discharged, previous all medications have been stopped. During this hospitalization, the patient was extensively explained about the details of her medical condition, diagnosis, test results extensively. At present, the patient has declined surgical options for the treatment of pericardial effusion. The patient and the patient's family has declined pericardial biopsy and pericardial effusion drainage. Dictated and electronically signed, not read. Alexander Moreland MD
[2018-08-02] MEDS: Levothyroxine 150 MCG TAB PO SCH (10:37)
[2018-08-02] MEDS: POLYETHYLENE GLYCOL 3350 17 GM/Dose PACKET PO SCH ×2 (10:37→10:43)
--- NOTE | 2018-08-02 12:45 | PN ---
DATE: 08/02/2018 CARDIOLOGY FOLLOWUP SUBJECTIVE: The patient is without shortness of breath. OBJECTIVE: VITAL SIGNS: Blood pressure 123/73, heart rate in the 80s. NECK: Negative JVD. LUNGS: Without rales. HEART: S1, S2. EXTREMITIES: Without edema. LABORATORY: Hemoglobin is 9.4. Chemistries; BUN and creatinine unremarkable. IMPRESSION: 1. Pericardial effusion. 2. Anemia. 3. Dyspnea, which is better. 4. History of hypertension. Given these findings, the patient has decided against any kind of pericardial biopsy or pericardial fluid tap. She is agreeable for followup. Given appointment for follow up as an outpatient. We will obtain serial echocardiograms to follow her pericardial effusion. Mookie Butler MD
[2018-08-02 13:04] VITALS: BP 128/80; PULSE 79; RESP 21; TEMP 97.1
[2018-08-03 02:25] LABS: ANCA SCREEN NEGATIVE (NEGATIVE)
--- NOTE | 2018-08-03 20:04 | CP.PCM.PN ---
Subjective - Date & Time of Evaluation Date of Evaluation: 08/01/18 Time of Evaluation: 16:00 - Subjective Subjective: Feeling better. Objective - Vital Signs/Intake and Output Vital Signs (last 24 hours): Temp Pulse Resp BP Pulse Ox 97.1 F L 79 21 128/80 98 08/02/18 12:00 08/02/18 12:00 08/02/18 12:00 08/02/18 12:00 08/02/18 06:00 - Labs Labs: 08/02/18 06:00 08/02/18 06:00 PT 14.6 SECONDS (9.4-12.5) H 07/27/18 20:53 INR 1.27 07/27/18 20:53 APTT 27.7 Seconds (25.1-36.5) 07/27/18 20:53 - Head Exam Head Exam: ATRAUMATIC - Eye Exam Eye Exam: Normal appearance - ENT Exam ENT Exam: Mucous Membranes Dry - Respiratory Exam Respiratory Exam: NORMAL BREATHING PATTERN - Cardiovascular Exam Cardiovascular Exam: +S1, +S2 - GI/Abdominal Exam GI & Abdominal Exam: Normal Bowel Sounds Assessment and Plan (1) Anemia Assessment & Plan: iron deficiency s/p PRBC transfusion IV venofer GI w/u Status: Acute
--- NOTE | 2018-08-03 20:05 | CP.PCM.PN ---
Subjective - Date & Time of Evaluation Date of Evaluation: 08/02/18 Time of Evaluation: 09:00 - Subjective Subjective: Feeling better declined pericardial biopsy/drainage of effusion Objective - Vital Signs/Intake and Output Vital Signs (last 24 hours): Temp Pulse Resp BP Pulse Ox 97.1 F L 79 21 128/80 98 08/02/18 12:00 08/02/18 12:00 08/02/18 12:00 08/02/18 12:00 08/02/18 06:00 - Labs Labs: 08/02/18 06:00 08/02/18 06:00 PT 14.6 SECONDS (9.4-12.5) H 07/27/18 20:53 INR 1.27 07/27/18 20:53 APTT 27.7 Seconds (25.1-36.5) 07/27/18 20:53 - Head Exam Head Exam: ATRAUMATIC - Eye Exam Eye Exam: Normal appearance - ENT Exam ENT Exam: Mucous Membranes Dry - Respiratory Exam Respiratory Exam: NORMAL BREATHING PATTERN - Cardiovascular Exam Cardiovascular Exam: +S1, +S2 - GI/Abdominal Exam GI & Abdominal Exam: Normal Bowel Sounds Assessment and Plan (1) Anemia Assessment & Plan: iron deficiency s/p PRBC transfusion IV venofer GI w/u Status: Acute
== END 2018-08-02 17:59 | disposition home health service (06) | DRG 812 ==
LOC: ED 13:23 → ERH 16:42 → 5RSO 21:09 → ICU 07-28 15:52 → 2RNO 07-31 18:14
PROVIDERS: ADMIT Internal Medicine; ATTEND Internal Medicine
PROC: 30233N1 Transfusion of Nonautologous Red Blood Cells into Peripheral Vein, Percutaneous Approach (ICD-10-PCS; principal; 2018-07-28)
DX: D50.9 Iron deficiency anemia, unspecified (principal); I31.3 Pericardial effusion (noninflammatory); E89.0 Postprocedural hypothyroidism; I11.9 Hypertensive heart disease without heart failure; E66.9 Obesity, unspecified; Z68.36 Body mass index [BMI] 36.0-36.9, adult; D72.819 Decreased white blood cell count, unspecified; R06.09 Other forms of dyspnea; R53.1 Weakness; R00.0 Tachycardia, unspecified; R50.9 Fever, unspecified; E83.51 Hypocalcemia; E66.01 Morbid (severe) obesity due to excess calories; E83.39 Other disorders of phosphorus metabolism; I08.1 Rheumatic disorders of both mitral and tricuspid valves; I10 Essential (primary) hypertension; I27.20 Pulmonary hypertension, unspecified; K44.9 Diaphragmatic hernia without obstruction or gangrene; M06.9 Rheumatoid arthritis, unspecified; Z68.37 Body mass index [BMI] 37.0-37.9, adult; R70.0 Elevated erythrocyte sedimentation rate; R79.82 Elevated C-reactive protein (CRP)

== ENCOUNTER 2018-08-19 11:46 | Outpatient (CLI) | payer MEDICARE | END 2018-08-19 11:47 | disposition home or self-care (01) | LOC: RAD 11:46 ==

== ENCOUNTER 2018-08-25 09:31 | Outpatient (CLI) | payer MEDICARE | END 2018-08-25 09:32 | disposition home or self-care (01) | LOC: RAD 09:31 ==

== ENCOUNTER 2018-09-08 09:28 | Outpatient (CLI) | payer MEDICARE, OTHER | END 2018-09-08 09:29 | disposition home or self-care (01) | LOC: RAD 09:28 ==

== ENCOUNTER 2018-09-29 09:11 | Day surgery (SDC) | payer MEDICARE, OTHER ==
[2018-09-23 11:31] VITALS: BMI 36.4
[2018-09-29 09:52] VITALS: TEMP 98.3
[2018-09-29] MEDS ORDERED: Propofol 10 mg/ml Inj (20 ML) ONE (10:03)
[2018-09-29] MEDS ORDERED: Sodium Chloride 0.9% 1,000 ML IV SCH (10:30)
[2018-09-29 10:35] VITALS: RESP 16
[2018-09-29 12:33] VITALS: BP 155/89; PULSE 76; O2SAT 96
== END 2018-09-29 12:25 | disposition home or self-care (01) ==
LOC: ENDO 09:11
PROVIDERS: ATTEND Specialist
DX: K25.9 Gastric ulcer, unspecified as acute or chronic, without hemorrhage or perforation (principal); K44.9 Diaphragmatic hernia without obstruction or gangrene; R13.10 Dysphagia, unspecified; D50.9 Iron deficiency anemia, unspecified; K29.50 Unspecified chronic gastritis without bleeding
CPT/HCPCS: 43239; 88305; 88312; 88342; J2704; J7030; J7040

== ENCOUNTER 2018-11-18 10:57 | Outpatient (CLI) | payer MEDICARE, SELFPAY | END 2018-11-18 10:58 | disposition home or self-care (01) | LOC: RAD 10:57 ==

== ENCOUNTER → 2018-11-23 | Outpatient (CLI) | payer MEDICARE, SELFPAY | LOC: RAD 09:16 ==

== ENCOUNTER 2019-01-03 07:22 | Outpatient (CLI) | payer MEDICARE, SELFPAY | END 2019-01-03 07:23 | disposition home or self-care (01) | LOC: RAD 07:22 | DX: M51.16 Intervertebral disc disorders with radiculopathy, lumbar region (principal); M51.36 Other intervertebral disc degeneration, lumbar region ==